=== PATIENT | male | born 1950 | race Caucasian/White ===

== ENCOUNTER 2022-02-16 09:45 | Outpatient (RCR) | payer MEDICARE, SELFPAY ==
--- OUTSIDE RECORDS SUMMARY | 2022-01-16 11:08 | XMS_ITS | Continuity of Care Document ---
:1950 Author Care Team Providers Name Role Phone MD Emy Ga Attending Physician SOHAIL Duarte Primary Care Physician Allergies, Adverse Reactions, Alerts Allergen Type Severity Reaction Last Updated Verified Status No Known Drug Allergy Unknown August Yes Active Allergy 2021 Social History Smoking Status Status Start Date End Date Date of Observat ion Never smoked tobacco April 6:25pm (finding) Additional Data Assigned Sex Male Problems Active Problems Medical Problem Onset Date Status Rectal cancer metastasized to lung 2018 Activ e Ulceration Active Postoperative visit Active Encounter for screening for Active COVID-19 Shingles Active Medications Medication Status Dose Units Route Directions Qty Days Start End Ins tructions Date Date Loperamide Active 2 MG PO As Needed Hcl (Imodium) 2 Mg CAP Lorazepam Active 0.5 MG PO Three Times April I f needed for nausea uncontrolled with prochlorperazine A Day as , (compazine) needed 2020 1:01pm Multivitamins Active 1 TAB PO Daily 100 (Multivitamin /Minerals) TAB Naproxen Active 1 TAB PO Bedtime Sodium-Diphen hydramin (Aleve Pm 220-25 Mg) 1 Tab TAB Ondansetron Active 4 MG PO Every April if prochlorperazine (compazine) is ineffective to control Hcl Hours as , nausea. Do not take within 24 hours of chemotherapy. needed 2020 12:59pm Potassium Active 20 MEQ PO Daily November On hold Chloride 2020 1:17pm Prochlorperaz Active 10 MG PO Every 4-April PRN ine Maleate Hours as , Nause a/vomitin needed 2019 4:03pm Cephalexin Disconti 500 MG PO Three Times 24 May Vilma watson nued A Day , er 2020, 6:33pm 2020 8:13am Cephalexin Disconti 500 MG PO Four Times 20 Octob e Hold (Keflex) 500 nued Daily er r , multiv itamin Mg CAP 2019 while taking 2019 3:56pm cephalexin 10:14am (keflex) Emollient Disconti 1 EA EX Twice A Day November t wice per day, alternating with triamcinolone and urea (Vanicream) nued , , cream to feet and hands. CRE 2020 2021 4:01pm 8:35am Lidocaine Disconti 1 MARYELLEN TOP Qid Prn as 50 October Apply a thin film topically on skin left of spine at the (Lidocaine 5% nued needed r , , lev el of shingles up to 4 times per day as needed for Oint) 5 % OIN 2020 2021 shingl es pain. Do not apply heat to skin. Avoid open areas. 9:39am 8:35am Lidocaine Hcl Disconti 4 % EX Twice A Day December obe apply a THIN layer/small amount to painful areas of feet (Lidocaine) 4 nued as needed , r tw ice per day, avoiding open areas. Alternate with urea % CRE 2020, cream & triamc inolone creams. Stop when pain resolves. 8:22am 2020 6:55am Lorazepam Disconti 0.5 MG PO Three Times 90 Octobe nued A Day as r needed 2019 10:37a m Naproxen Disconti 1 TAB PO Bedtime Novemb Sodium-Diphen nued er hydramin 4th, (Aleve Pm 2018 220-25 Mg) 1 9:52am Tab TAB Ondansetron Disconti 8 MG PO Every 8 30 Octobe Hcl (Zofran) nued Hours r 8 Mg TAB 2019 10:37a m Potassium Disconti 10 MEQ OR Daily October Bicarbonate-C nued y , , itric A 2019 2019 (Effer-K) 10 5:46pm 8:54am Meq TAB Potassium Disconti 10 MEQ OR Daily July Bicarbonate-C nued , ry itric A 2020 04, (Effer-K) 10 12:15pm 2019 Meq TAB 5:46pm Potassium Disconti 20 MEQ PO Daily 30 July Chloride nued , , 2020 2020 9:45am 1:17pm Potassium Disconti 10 MEQ PO Daily Julyuar Chloride nued 15, y (Klor-Con) 10 2019 15, Meq TABCR 8:56am 2019 12:15p m Potassium Disconti 10 MEQ PO Daily Julyuar Chloride nued , y 2019, 11:15am 2019 8:56am Prochlorperaz Disconti 10 MG PO Every 4-6 e PRN ine Maleate nued Hours as r Nause a/vomitin needed 2019 4:03pm Regorafenib Disconti 80 MG PO Daily Decemberobe DAYS 1-14, (Stivarga) 40 nued 18, r EVERY 21 DAYS Mg TAB 2021 06, 2:52pm 2020 12:59p m Regorafenib Disconti 120 MG PO Daily 63 November DAYS 1-21, (Stivarga) 40 nued 24, 18th, EVERY 28 DAYS Mg TAB 2020 2020 1:49pm 2:52pm Regorafenib Disconti 120 MG PO Daily 84 November DAYS 1-21, (Stivarga) 40 nued , 24, EVERY 28 DAYS Mg TAB 2020 2020 1:47pm 1:49pm Regorafenib Disconti 160 MG PO Daily 84 September DAYS 1-21, (Stivarga) 40 nued , 24, EVERY 28 DAYS Mg TAB 2020 2020 9:11am 1:47pm Triamcinolone Disconti 1 MARYELLEN TOP Twice A Day November il use twice per day. Alternate with urea cream and vanicream Acetonide nued , , or equival ent. stop use when pain resolves. (Triamcinolon 2020 2021 e Acetonide 4:01pm 8:35am (Cream)) 0.1 % CRE Urea (Urea 10 Disconti 10 % EX Twice A Day November emb use twice daily, alternating with vanicream or equivalent, Hydrating) 10 nued , er and tr iamcinolone. % CRE 2020, 4:01pm 2020 8:13am Valacyclovir Disconti 1 GRAMS PO Three Times 15 May No vemb Hcl (Valtrex) nued A Day , er 1 Gm TAB 2020, 6:33pm 2020 8:13am Medical Equipment Device Date Implanted Device Details PowerPort M.[employer]. Implantable May 08, 2021 REMIGIO: [id number] Issuing Agency: [facility] Device Id: [id number] Expiration Date: 09-26-29 Lot Number: [id number] Relevant Diagnostic Tests and/or Laboratory Data Laboratory Results Test Date/Time Result Interpretation Reference Result Comment Performing Range Site White Blood January 12, 6.46 5.00-10.00 [facility] Count 2021 [address] [facility] 7:45am [facility] [address] Red Blood January 12, 4.50 4.32-5.72 [facility] Count 2021 [address] [facility] 7:45am [place] [address] Hemoglobin January 12, 12.2 13.5-17.5 [facility] 2021 [address] [facility] 7:45am [place] [address] Hematocrit January 12, 38.8 38.8-50.0 [facility] 2021 [address] [facility] 7:45am [place] [address] Mean January 12, 86 81-95 [facility] Corpuscular 2021 1999 [facility] Volume 7:45am [place] [address] Mean January 12, 27 27-34 [facility] Corpuscular 2021 [address] [facility] Hemoglobin 7:45am [place] [address] Mean January 12, 31 32-36 [facility] Corpuscular 2021 [address] [facility] Hemoglobin 7:45am [place] [address] Concent Platelet Count January 12, 195 150-450 [facility] 2021 [address] [facility] 7:45am [place] [address] RDW January 12, 15.9 11.5-15.3 [facility] Coefficient of 2021 [address] [facility] Variation 7:45am [place] [address] Neutrophils January 12, 60.0 50.0-70.0 [facility] (%) (Auto) 2021 1999 [facility] 7:45am [place] [address] Lymphocytes January 12, 23.7 25.0-45.0 [facility] (%) (Auto) 2021 [address] [facility] 7:45am [place] [address] Monocytes (%) January 12, 13.0 0.00-11.0 [facility] (Auto) 2021 [address] [facility] 7:45am [place] [address] Eosinophils January 12, 2.2 0.0-7.0 [facility] (%) (Auto) 2021 [address] [facility] 7:45am [place] [address] Basophils (%) January 12, 0.9 0.0-3.0 [facility] (Auto) 2021 [address] [facility] 7:45am [place] [address] Immature January 12, 0.2 [facility] Granulocyte % 2021 [address] [facility] (Auto) 7:45am [place] [address] RDW April 17.1 11.5-15.3 [facility] Coefficient of 2020 [facility] Variation 8:29am [place] [address] Neutrophils # January 12, 3.88 1.70-7.00 [facility] (Auto) 2021 [address] [facility] 7:45am [place] [address] Lymphocytes # January 12, 1.53 0.90-2.90 [facility] (Auto) 2021 [address] [facility] 7:45am [place] [address] Monocytes # January 12, 0.84 0.30-0.90 [facility] (Auto) 2021 [address] [facility] 7:45am [place] [address] Eosinophils # January 12, 0.14 0.00-0.50 [facility] (Auto) 2021 [address] [facility] 7:45am [place] [address] Basophils # January 12, 0.06 0.00-0.20 [facility] (Auto) 2021 [address] [facility] 7:45am [place] [address] Immature January 12, 0.01 [facility] Granulocyte # 2021 [address] [facility] (Auto) 7:45am [facility] [address] Urine Color December 29, YELLOW YELLOW [facility] 2021 [address] [facility] 8:43am [place] [address] Urine December 29, CLEAR CLEAR [facility] Appearance 2021 [address] [facility] 8:43am [place] [address] Urine Glucose December 29, NEGATIVE NEGATIVE [facility] (UA) 2021 [address] [facility] 8:43am [place] [address] Urine December 29, NEGATIVE NEGATIVE [facility] Bilirubin 2021 [address] [facility] 8:43am [place] [address] Urine Ketones December 29, NEGATIVE NEGATIVE [facility] 2021 [address] [facility] 8:43am [facility] [address] Urine Specific December 29, 1.010 1.000-1.03 [facility] [place] 2021 0 [address] [facility] 8:43am [place] [address] Urine pH December 29, 7.0 5.0 - 8.5 [facility] 2021 [address] [facility] 8:43am [facility] [address] Urine Protein December 29, NEGATIVE NEGATIVE [facility] 2021 [address] [facility] 8:43am [facility] [address] Urine December 29, 1.0 0.2 [facility] Urobilinogen 2021 1999 [facility] 8:43am [facility] [address] Urine Nitrite December 29, NEGATIVE NEGATIVE [facility] 2021 [address] [facility] 8:43am [facility] [address] Urine Blood December 29, NEGATIVE NEGATIVE [facility] 2021 [address] [facility] 8:43am [place] [address] Urine December 29, NEGATIVE NEGATIVE [facility] Leukocyte 2021 [address] [facility] Esterase 8:43am [place] [address] Random Glucose January 12, 103 60-115 [facility] 2021 [address] [facility] 7:45am [facility] [address] Blood Urea January 12, 12 7-30 [facility] Nitrogen 2021 [address] [facility] 7:45am [facility] [address] Creatinine January 12, 0.9 0.5-1.5 [facility] 2021 [address] [facility] 7:45am [facility] [address] Estimated January 12, 88.197 [facility] Creatinine 2021 [address] [facility] Clearance 7:45am [facility] [address] Sodium Level January 12, 137 135-149 [facility] 2021 [address] [facility] 7:45am [facility] [address] Potassium January 12, 4.2 3.6-5.1 [facility] Level 2021 [address] [facility] 7:45am [facility] [address] Chloride Level January 12, 102 96-114 [facility] 2021 [address] [facility] 7:45am [facility] [address] Carbon Dioxide January 12, 26 20-32 [facility] Level 2021 [address] [facility] 7:45am [facility] [address] Calcium Level January 12, 9.2 8.4-10.6 [facility] 2021 [address] [facility] 7:45am [facility] [address] Total Protein January 12, 7.1 6.0-8.3 The use of [facility] Lab 2021 Eltrombopag, a [address] [facility] 7:45am bone marrow [facility] [place] [address] stimulant used to treat thrombocytopenia and aplastic anemia, interferes with this measurement of total protein. A 5% bias has been observed. Albumin January 12, 4.2 3.3-5.0 [facility] Lab 2021 [address] [facility] 7:45am [facility] [address] Total January 12, 0.8 0.1-1.5 [facility] Bilirubin 2021 [address] [facility] 7:45am [place] [address] Aspartate January 12 35 12-35 [facility] Lab Amino Transf 2021 1999 [facility] (AST/SGOT) 7:45am [facility] [address] Alanine January 12 20 4-50 [facility] Lab Aminotransfera 2021 [address] [facility] se (ALT/SGPT) 7:45am [facility] [address] Alkaline January 12, 141 40-150 [facility] Lab Phosphatase 2021 1999 [facility] 7:45am [facility] [address] Thyroid March 2.760 0.270-4.20 Patients taking [facility] Stimulating 2020 0 a high dose [address] [facility] Hormone (TSH) 2:20pm (>5mg/day) [place] [facility] [place] [address] Biotin supplement (vitamin B7) will demonstrate a >10% negative bias for TSH testing. Advance Directives Advance Directive Response Recorded Date/Time Has patient completed a No May 20 6:25pm Health Care Directive? Insurance Providers Guarantor Sid Azul Address [address] [place] [id number] Contact Info. Home Phone: Payer Policy Id Coverage Id Subscriber's Subscriber Id Effective E xpiration Name Date Date Medicare [id number] Sid Azul 30 Encounters Encounter Location(s) Arrival/Admit Date Discharge/Depart Date Provider(s) Registered [place] January 14, [address] [facility] 6:57am Plan of Treatment Future Tests Future scheduled test information is unavailable Pending Tests Pending diagnostic test information is unavailable Future Visits Future appointment information is unavailable Referrals to Other Providers Reason for Referral Start Provider Provider Contact Provider Address Referral Date Information Jaja Duarte Work Phone: [facility] [address] [phone] Future Procedures Future procedure information is unavailable Future Medications Future medication information is unavailable Patient Instructions See Additional Instructions Shingles (ED) Potassium Content of Foods List (GEN) Hypokalemia (GEN)
[2022-01-27 11:30] VITALS: BP 123/77; PULSE 73; RESP 16; TEMP 36.5; O2SAT 98
[2022-01-27 11:35] LABS: Basophils Absolute Auto 0.05 K/uL (0.00-0.30); Basophils Percent Auto 0.8 % (0.0-3.0); Eosinophils Absolute Auto 0.32 K/uL (0.00-0.50); Eosinophils Percent Auto 5.1 % (0.0-7.0); Hematocrit 37.8 % (37.0-53.0); Lymphocytes Absolute Auto 1.52 K/uL (0.90-2.90); Lymphocytes Percent Auto 24.2 % (20-44); Mean Corpuscular HGB Conc 32 gm/dL (32-36); Mean Corpuscular Hemoglobin 27 pg (26-34); Mean Corpuscular Volume 86 fL (80-100); Monocytes Percent Auto 13.7 % (0.0-11.0); Neutrophils Absolute Auto 3.53 K/uL (1.7-7.0); Neutrophils Percent Auto 56.2 % (42.0-72.0); Platelet Count* 159 K/uL (140-440); RDW Coefficient of Variation % 15.7 % (11.5-15.5); Red Blood Count 4.42 m/uL (4.30-5.90); White Blood Count* 6.28 K/uL (4.50-11.00)
[2022-01-27 11:41] LABS: Appearance Urine Clear (Clear); Bilirubin Urine Negative (Negative); Blood Urine Negative (Negative); Color Urine Yellow (Yellow); Glucose Urine Negative (Negative); Ketones Urine Negative (Negative); Leukocyte Esterase Urine Negative (Negative); Nitrite Urine Negative (Negative); Protein Urine Negative (Negative); pH Urine 6.5 (5.0-8.5)
[2022-01-27 11:47] LABS: Slide Review Reflex No
[2022-01-27 11:50] LABS: Albumin* 3.8 g/dL (3.3-5.0); Chloride* 105 mmol/L (96-114)
[2022-01-27 11:51] LABS: Potassium* 3.8 mmol/L (3.6-5.1); Sodium* 138 mmol/L (135-149)
[2022-01-27 11:53] LABS: Alkaline Phosphatase* 142 U/L (40-150); Aspartate Amino Transferase* 34 U/L (12-35); Bilirubin Total* 0.6 mg/dL (0.1-1.5); Blood Urea Nitrogen* 15 mg/dL (7-30); Carbon Dioxide* 30 mmol/L (20-32); Creatinine* 0.8 mg/dL (0.5-1.5); Est. Creatinine Clearance* 77.63; Estimated Glomerular Filt Rate 94.03; Total Protein* 6.6 g/dL (6.0-8.3)
[2022-01-27 11:54] LABS: Alanine Aminotransferase* 19 U/L (4-50); Calcium* 8.9 mg/dL (8.4-10.6); Glucose* 105 mg/dL (60-115)
[2022-01-27] MEDS: GRANISETRON 1 MG/ML inj IVP (12:52)
[2022-01-29 13:39] VITALS: BP 123/69; PULSE 76; RESP 16; TEMP 36.8; O2SAT 98
--- NOTE | 2022-02-06 17:38 | ONC.NURNOTE ---
Authorization: User: Hilary L Juan Date: 12/29/21 11:14 Type: Eligibility Determination Note... Request received for Granisetron J1626. Patient carries [employer] as primary insurance. Per CMS.gov no prior authorization is required for Granisetron. Services are based on medical necessity and follows Medicare guidelines. User: Frida Murguia Date: 04/25/21 13:57 Type: Eligibility Determination Note... Received request for prior auth for Avastin (J9035), Oxaliplatin (J9263), Leucovorin (J0640),Fluorouracil (J9190) and Aloxi (J2469). Pt carries Medicare. Per CMS.gov, LCD C03202, prior auth is not required. These are covered based on medical necessity.
[2022-02-09 08:55] VITALS: BP 142/76; PULSE 79; RESP 16; TEMP 36.7; O2SAT 98
[2022-02-09 09:26] LABS: Basophils Absolute Auto 0.05 K/uL (0.00-0.30); Eosinophils Percent Auto 7.2 % (0.0-7.0); Hematocrit 37.9 % (37.0-53.0); Hemoglobin* 11.9 gm/dL (13.5-17.5); Immature Granulocytes Abs Auto 0.01 K/uL (0.00-0.30); Lymphocytes Absolute Auto 1.28 K/uL (0.90-2.90); Lymphocytes Percent Auto 24.3 % (20-44); Mean Corpuscular HGB Conc 31 gm/dL (32-36); Mean Corpuscular Hemoglobin 27 pg (26-34); Mean Corpuscular Volume 85 fL (80-100); Monocytes Percent Auto 13.9 % (0.0-11.0); Neutrophils Absolute Auto 2.81 K/uL (1.7-7.0); Neutrophils Percent Auto 53.4 % (42.0-72.0); Platelet Count* 144 K/uL (140-440); Red Blood Count 4.45 m/uL (4.30-5.90); White Blood Count* 5.26 K/uL (4.50-11.00)
[2022-02-09 09:29] LABS: Slide Review Reflex No
[2022-02-09 09:39] LABS: Albumin* 3.8 g/dL (3.3-5.0); Chloride* 106 mmol/L (96-114); Potassium* 3.8 mmol/L (3.6-5.1); Sodium* 137 mmol/L (135-149)
[2022-02-09 09:41] LABS: Creatinine* 0.8 mg/dL (0.5-1.5); Est. Creatinine Clearance* 77.63; Estimated Glomerular Filt Rate 94 ml/min
[2022-02-09 09:42] LABS: Alanine Aminotransferase* 18 U/L (4-50); Alkaline Phosphatase* 146 U/L (40-150); Aspartate Amino Transferase* 32 U/L (12-35); Bilirubin Total* 0.6 mg/dL (0.1-1.5); Blood Urea Nitrogen* 17 mg/dL (7-30); Calcium* 8.8 mg/dL (8.4-10.6); Carbon Dioxide* 25 mmol/L (20-32); Glucose* 110 mg/dL (60-115); Total Protein* 6.6 g/dL (6.0-8.3)
[2022-02-09] MEDS: GRANISETRON 1 MG/ML inj IVP (11:22)
[2022-02-11 10:42] VITALS: BP 124/75; PULSE 77; RESP 16; TEMP 36.3; O2SAT 99
[2022-02-16] MEDS: HEPARIN 500 UNIT/5 ML SYRINGE IVF (10:12)
[2022-02-16] MEDS: SODIUM CHLORIDE 0.9 % (FLUSH) 10 ML SYRINGE IVF (10:13)
== END 2022-02-22 23:59 | disposition home or self-care (01) ==
LOC: CCIC 09:45
PROVIDERS: Clinical Nurse Specialist; PCP Physician Assistant; Visit Provider Internal Medicine Medical Oncology
DX: C20 Malignant neoplasm of rectum (principal); C78.00 Secondary malignant neoplasm of unspecified lung
CPT/HCPCS: 36415; 36591; 71260; 74177; 80053; 81003; 85025; 96365; 96366; 96375; 96376; 96413; 96416; 96417; 99211; J0640; J1626; J1642; J7050; J9035; J9190; Q9967

== ENCOUNTER 2022-06-01 14:32 | Outpatient (CLI) | payer MEDICARE, SELFPAY | END 2022-06-01 14:33 | disposition home or self-care (01) | LOC: RAD 14:32 | PROVIDERS: PCP Physician Assistant; Visit Provider Clinical Nurse Specialist | DX: Z01.818 Encounter for other preprocedural examination (principal); I51.7 Cardiomegaly; I38 Endocarditis, valve unspecified; I34.0 Nonrheumatic mitral (valve) insufficiency; C20 Malignant neoplasm of rectum; C78.00 Secondary malignant neoplasm of unspecified lung; Z51.81 Encounter for therapeutic drug level monitoring; Z79.899 Other long term (current) drug therapy | CPT/HCPCS: 93306 ==

== ENCOUNTER 2022-07-03 06:08 | Emergency (ER) | payer MEDICARE, SELFPAY ==
[2022-07-03 06:32] VITALS: BP 128/71; PULSE 86; RESP 16; TEMP 36.7; O2SAT 98
--- NOTE | 2022-07-03 06:48 | CRLHL7_ITS ---
For Patients: As a result of the Century Cures Act, medical imaging exams and procedure reports are released immediately into your electronic medical record. You may view this report before your referring provider. If you have questions, please contact your health care provider. INDICATION: Rectal bleeding. History of rectal adenocarcinoma metastatic to pelvis and to the lung. COMPARISON: Portions of a February 16, 2022 examination. TECHNIQUE: CT examination of the abdomen and pelvis was performed following the uneventful intravenous administration of 95 cc of Isovue 370. Thin section axial images were obtained from the lung bases through the pubic symphysis. Oral contrast was not administered. Please note that all CT scans at this facility use dose modulation, iterative reconstruction, and/or weight-based dosing when appropriate to reduce radiation dose to as low as reasonably achievable. FINDINGS: LUNG BASES: Multiple basilar lung masses increased in number and size when compared to the prior study consistent with progressive metastatic disease. There is minimal cavitation associated with a few of these lesions. Heart size normal and the lung bases. No pericardial fluid and no pleural fluid LIVER/BILIARY SYSTEM:The liver is normal in size and configuration. There is no focal mass and there is no intra- or extra hepatic biliary ductal dilatation.Steatosis. Normal appearing gallbladder ADRENALS: Normal KIDNEYS, URETERS and BLADDER:The kidneys appear normal. No visible mass, calculus or hydronephrosis. The ureters and bladder as visualized appear normal. SPLEEN:Normal appearance. PANCREAS: Appears normal. RETROPERITONEUM and MESENTERY: There is no mass, adenopathy or aortic aneurysm. GASTROINTESTINAL SYSTEM: There is a mass in the low left lateral rectum which likely represents the patient`s primary. This appears to be ulcerated. There is also possible extension into the posterolateral left aspect of prostate and the left seminal vesicle. These findings are progressive when compared to the prior examination. PELVIS: No visible adenopathy or free fluid. OSSEOUS STRUCTURES and ABDOMINAL WALL: No evidence of osseous metastatic disease.Large fat containing right inguinal hernia. OTHER: No free fluid or free air. IMPRESSION: 1. Multiple basilar lung masses increased in number and size consistent with progressive metastatic disease. 2. Mass in the low left lateral rectum which likely represents the patient`s primary neoplasm. This appears to be ulcerated. Probable transmural extension into the posterior lateral left aspect of the prostate superiorly and into the left seminal vesicle. Progressive findings compared to the previous examination. Please note that all CT scans at this facility use dose modulation, iterative reconstruction, and/or weight-based dosing when appropriate to reduce radiation dose to as low as reasonably achievable. Dictated by Edgard Rowell MD @ 07/03/2022 8:28:01 AM (Electronically Signed)
--- NOTE | 2022-07-03 07:02 | ED_ITS ---
HPI - General Adult General Chief complaint: Unspecified Complaint, Adult <Nati Rodriguez MD - Last Filed: 07/04/22 23:50> Stated complaint: Hemorhoids <Nati Rodriguez MD - Last Filed: 07/04/22 23:50> Time Seen by Provider: 07/03/22 06:37 <Nati Rodriguez MD - Last Filed: 07/04/22 23:50> Source: patient and family <Nati Rodriguez MD - Last Filed: 07/04/22 23:50> Mode of arrival: ambulatory <Nati Rodriguez MD - Last Filed: 07/04/22 23:50> Limitations: no limitations <Nati Rodriguez MD - Last Filed: 07/04/22 23:50> History of Present Illness HPI narrative: 72-year-old male presents the emergency department for evaluation of rectal bleeding. Patient reports that he has had intermittent episodes of this over the last several months. He was diagnosed with rectal cancer and January of 2019. For the past 2 weeks, the bleeding has become more regular. He awoke this morning with what he describes as ?a crime scene?. He had spontaneous rectal bleeding that had soaked the bed sheets. Being bright red blood and a few small clots. This has never happened before. Rudolph and put on depends. He has not noted subsequent leakage. He does not notice any chest pain, dizziness, lightheadedness or syncopal symptoms. He did let his oncology team know that he was having some bleeding at his last visit, he was told to continue monitoring as it since his blood counts look good and his vitals were stable. Is not take anticoagulants. He does use NSAIDs. No history of upper GI bleed, no GERD symptoms. No fevers or recent illness. No rectal injury or trauma. Last bowel movement was yesterday, it had some blood as they typically do lately but was otherwise unremarkable. No urinary changes. No recent radiation. No history of DVT or PE. Past medical history really only notable for the adenocarcinoma of the colon. He denies any other long-term health problems. He denies use of any prescription medications but states that he does tend to take Aleve at bedtime. I review his med list and really is only significant for as needed anti nausea medicines and chemotherapy agents. Socially denies any alcohol or illicit drug use, no pertinent travel. ROS is only notable for the rectal bleeding, otherwise feels well. Negative times 12 systems. <Nati Rodriguez MD - Last Filed: 07/04/22 23:50> Related Data Home medications: Home Medications Medication Instructions Recorded Confirmed loperamide 2 mg capsule 2 mg PO QID PRN 01/22/22 06/22/22 lorazepam 0.5 mg tablet 0.5 mg PO Q4H PRN 01/22/22 06/22/22 multivitamin 1 tab PO DAILY 01/22/22 05/11/22 naproxen 220 mg-diphenhydramine 25 1 tab PO HS 01/22/22 06/22/22 mg tablet ondansetron HCl 4 mg tablet 4 mg PO Q6H PRN 01/22/22 06/22/22 prochlorperazine maleate 10 mg 10 mg PO Q6-8H PRN 01/22/22 06/22/22 tablet Previous Rx's Medication Instructions Recorded tucatinib 150 mg tablet 300 mg PO Q12H #120 tabs 05/25/22 tucatinib 150 mg tablet 300 mg PO Q12H #120 tabs 06/01/22 <Nati Rodriguez MD - Last Filed: 07/04/22 23:50> Allergies/adverse reactions: Allergies Allergy/AdvReac Type Severity Reaction Status Date / Time No Known Drug Allergies Allergy Verified 07/03/22 08:07 <Nati Rodriguez MD - Last Filed: 07/04/22 23:50> [facility] Medical History: Medical History 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 Encounter for postoperative care Herpes zoster Rectal cancer Ulcerative lesion <Nati Rodriguez MD - Last Filed: 07/04/22 23:50> Social History: Social History Smoking Status: Unknown if ever smoked How often do you have a drink containing alcohol: never AUDIT-C Alcohol total score: 0 Non-prescribed substance use: denies use service: No <Nati Rodriguez MD - Last Filed: 07/04/22 23:50> Exam Const: Vital Signs, click to edit/add: Vital Signs - 24 hr 07/03/22 06:32 Temperature 98.0 F Pulse Rate [Left P ulse Oximeter] 86 Respiratory Rate 16 Blood Pressure [Ri ght Upper Arm] 128/71 Pulse Oximetry 98 Oxygen Delivery Me thod Room Air <Nati Rodriguez MD - Last Filed: 07/04/22 23:50> Vital Signs, click to edit/add: Vital Signs - 24 hr 07/03/22 06:32 Temperature 98.0 F Pulse Rate [Left P ulse Oximeter] 86 Respiratory Rate 16 Blood Pressure [Ri ght Upper Arm] 128/71 Pulse Oximetry 98 Oxygen Delivery Me thod Room Air <Vanessa Mesa MD - Last Filed: 07/03/22 09:23> Documenting provider has reviewed patient's vital signs: yes <Nati Rodriguez MD - Last Filed: 07/04/22 23:50> Common normals: no apparent distress <Nati Rodriguez MD - Last Filed: 07/04/22 23:50> General appearance: cooperative, comfortable and well kempt <Nati Rodriguez MD - Last Filed: 07/04/22 23:50> HENMT: Common normals: normocephalic <Nati Rodriguez MD - Last Filed: 07/04/22 23:50> Head and scalp: normocephalic <Nati Rodriguez MD - Last Filed: 07/04/22 23:50> Mouth: oral and palatal mucosa normal <Nati Rodriguez MD - Last Filed: 07/04/22 23:50> Other: Poor dentition. Acyanotic lips <Nati Rodriguez MD - Last Filed: 07/04/22 23:50> Eye: Common normals: conjunctivae normal <Nati Rodriguez MD - Last Filed: 07/04/22 23:50> Conjunctiva: conjunctiva(e) normal <Nati Rodriguez MD - Last Filed: 07/04/22 23:50> Other: No pallor or icterus <Nati Rodriguez MD - Last Filed: 07/04/22 23:50> Neck & C-Spine: Common normals: no lymphadenopathy <Nati Rodriguez MD - Last Filed: 07/04/22 23:50> Resp: Common normals: normal respiratory effort, no use of accessory muscles and clear to auscultation bilaterally <Nati Rodriguez MD - Last Filed: 07/04/22 23:50> Effort & inspection: able to speak in complete sentences <Nati Rodriguez MD - Last Filed: 07/04/22 23:50> Auscultation: clear to auscultation bilaterally <Nati Rodriguez MD - Last Filed: 07/04/22 23:50> Cardio: Common normals: regular rate, regular rhythm, S1 normal heart sound, S2 normal heart sound, no murmurs and peripheral pulses 2+ throughout <Nati Rodriguez MD - Last Filed: 07/04/22 23:50> Rate: regular rate <Nati Rodriguez MD - Last Filed: 07/04/22 23:50> Rhythm: regular rhythm <Nati Rodriguez MD - Last Filed: 07/04/22 23:50> Heart sounds: S1 normal and S2 normal <Nati Rodriguez MD - Last Filed: 07/04/22 23:50> Peripheral pulses: pulses 2+ throughout <Nati Rodriguez MD - Last Filed: 07/04/22 23:50> GI: Common normals: Normal to inspection, nondistended, normoactive bowel sounds present, soft to palpation, non-tender and no hepatosplenomegaly <Nati Rodriguez MD - Last Filed: 07/04/22 23:50> Palpation: soft and no hepatosplenomegaly <Nati Rodriguez MD - Last Filed: 07/04/22 23:50> : Other: Perirectal exam is essentially normal. There is a scant amount of bleeding clean to the skin only, the depends that he put on over an hour ago is dry. There appears to be normal rectal tone and though I do not perform much of an internal exam, I do not see any obvious external mass. I need to research where his tumor is to not disrupt any known disease if his lesion is low. At this point everything appears to have clotted over. <Nati Rodriguez MD - Last Filed: 07/04/22 23:50> Extremity: Common normals: normal to inspection and normal capillary refill <Nati Rodriguez MD - Last Filed: 07/04/22 23:50> Neuro: Speech: speech normal <Nati Rodriguez MD - Last Filed: 07/04/22 23:50> Motor exam: no tremor noted and no movement abnormalities noted <Nati Rodriguez MD - Last Filed: 07/04/22 23:50> Psych: Appearance: well kempt <Nati Rodriguez MD - Last Filed: 07/04/22 23:50> Attitude: engaged <Nati Rodriguez MD - Last Filed: 07/04/22 23:50> Mood and affect: euthymic mood <Nati Rodriguez MD - Last Filed: 07/04/22 23:50> Insight: insight good <Nati Rodriguez MD - Last Filed: 07/04/22 23:50> Judgement: judgment good <Nati Rodriguez MD - Last Filed: 07/04/22 23:50> Skin: Common normals: no rashes or lesions noted <Nati Rodriguez MD - Last Filed: 07/04/22 23:50> General skin exam: no rashes or lesions noted <Nati Rodriguez MD - Last Filed: 07/04/22 23:50> Course Course Hospital Course: Patient proceeded with an abdominal CT scan that showed a rectal mass that is not ulcerated. I did speak to Dr. Ruggiero, oncologist, who recommended that since the patient is no longer bleeding, is hemodynamically, and hemoglobin has not had a significant change, then he can be discharged home with oncology follow-up. Oncology Clinic will reach out to the patient today to set this up. <Nati Rodriguez MD - Last Filed: 07/04/22 23:50> Vital Signs Vital signs: Initial Vital Signs Temperature 98.0 F 07/03/22 06:32 Temperature Source Temporal Artery Scan 07/03/22 06:32 Pulse Rate 86 07/03/22 06:32 Pulse Rhythm 07/03/22 06:32 Respiratory Rate 16 07/03/22 06:32 Blood Pressure 128/71 07/03/22 06:32 Blood Pressure Mean 90 07/03/22 06:32 Blood Pressure Position Semi-Fowlers 07/03/22 06:32 Pulse Oximetry 98 07/03/22 06:32 Oxygen Delivery Method 07/03/22 06:32 Vital Signs Temperature 98.0 F 07/03/22 06:32 Pulse Rate 86 07/03/22 06:32 Respiratory Rate 16 07/03/22 06:32 Blood Pressure 128/71 07/03/22 06:32 Pulse Oximetry 98 07/03/22 06:32 Oxygen Delivery Method 07/03/22 06:32 Temperature 98.0 F 07/03/22 06:32 Pulse Rate 81 07/03/22 08:15 Respiratory Rate 18 07/03/22 08:15 Blood Pressure 143/83 H 07/03/22 08:15 Pulse Oximetry 98 07/03/22 08:15 Oxygen Delivery Method 07/03/22 08:15 <Nati Rodriguez MD - Last Filed: 07/04/22 23:50> Initial Vital Signs Temperature 98.0 F 07/03/22 06:32 Temperature Source Temporal Artery Scan 07/03/22 06:32 Pulse Rate 86 07/03/22 06:32 Pulse Rhythm 07/03/22 06:32 Respiratory Rate 16 07/03/22 06:32 Blood Pressure 128/71 07/03/22 06:32 Blood Pressure Mean 90 07/03/22 06:32 Blood Pressure Position Semi-Fowlers 07/03/22 06:32 Pulse Oximetry 98 07/03/22 06:32 Oxygen Delivery Method 07/03/22 06:32 Vital Signs Temperature 98.0 F 07/03/22 06:32 Pulse Rate 86 07/03/22 06:32 Respiratory Rate 16 07/03/22 06:32 Blood Pressure 128/71 07/03/22 06:32 Pulse Oximetry 98 07/03/22 06:32 Oxygen Delivery Method 07/03/22 06:32 Temperature 98.0 F 07/03/22 06:32 Pulse Rate 81 07/03/22 08:15 Respiratory Rate 18 07/03/22 08:15 Blood Pressure 143/83 H 07/03/22 08:15 Pulse Oximetry 98 07/03/22 08:15 Oxygen Delivery Method 07/03/22 08:15 <Vanessa Mesa MD - Last Filed: 07/03/22 09:23> Medical Decision Making MDM Narrative Medical decision making narrative: Differential diagnosis including upper GI bleed, lower GI bleed, diverticular bleed, cancer related bleeding. Basic labs, check in on anemia, INR. I do recommend CT of the abdomen and pelvis since it looks as though he has not had 1 recently. Will bolus normal saline x1. Plan of care discussed. <Nati Rodriguez MD - Last Filed: 07/04/22 23:50> Differential diagnosis including upper GI bleed, lower GI bleed, diverticular bleed, cancer related bleeding. Basic labs, check in on anemia, INR. I do recommend CT of the abdomen and pelvis since it looks as though he has not had 1 recently. Will bolus normal saline x1. Plan of care discussed. 72-year-old male with primary rectal cancer and lung metastasis, presenting with rectal bleeding secondary to ulcerating rectal mass. Patient will be discharged home at this time and he will follow up with Oncology in the next couple of days. Will return to the ER if significant bleeding resumes. <Vanessa Mesa MD - Last Filed: 07/03/22 09:23> Medical Records Medical records reviewed: Yes I reviewed the patient's medical records <Vanessa Mesa MD - Last Filed: 07/03/22 09:23> Lab Data Lab results reviewed: Yes I reviewed the patient's lab results <Vanessa Mesa MD - Last Filed: 07/03/22 09:23> Labs: Lab Results 07/03/22 07/03/22 07/03/22 Range/Units 07:08 07:08 07:08 WBC 7.75 (4.50-11.00) K/uL RBC 4.57 (4.30-5.90) m/uL Hgb 11.6 L (13.5-17.5) gm/dL Hct 36.0 L (37.0-53.0) % MCV 79 L (80-100) fL MCH 25 L (26-34) pg MCHC 32 (32-36) gm/dL RDW Coeff of Keyur 14.4 (11.5-15.5) % Plt Count 223 (140-440) K/uL Neut % (Auto) 71.0 (42.0-72.0) % Lymph % (Auto) 12.9 L (20-44) % [place] % (Auto) 10.1 (0.0-11.0) % Eos % (Auto) 4.9 (0.0-7.0) % Baso % (Auto) 0.8 (0.0-3.0) % Neut # (Auto) 5.51 (1.7-7.0) K/uL Lymph # (Auto) 1.00 (0.90-2.90) K/uL [place] # (Auto) 0.80 (0.00-0.90) K/UL Eos # (Auto) 0.38 (0.00-0.50) K/uL Baso # (Auto) 0.06 (0.00-0.30) K/uL Abs Immat Gran (auto) 0.02 (0.00-0.30) K/uL Imm/Tot Granulo (auto) 0.3 % INR 1.06 (0.91-1.10) Sodium 139 (135-149) mmol/L Potassium 3.5 L (3.6-5.1) mmol/L Chloride 107 (96-114) mmol/L Carbon Dioxide 26 (20-32) mmol/L BUN 13 (7-30) mg/dL Creatinine 0.8 (0.5-1.5) mg/dL Estimated GFR 94 ml/min Glucose 98 (60-115) mg/dL Calcium 9.1 (8.4-10.6) mg/dL Total Bilirubin 0.7 (0.1-1.5) mg/dL AST 34 (12-35) U/L ALT 21 (4-50) U/L Alkaline Phosphatase 136 (40-150) U/L C-Reactive Protein 1.6 H (0.5-1.0) mg/dL Total Protein 6.9 (6.0-8.3) g/dL Albumin 3.8 (3.3-5.0) g/dL <Nati Rodriguez MD - Last Filed: 07/04/22 23:50> Lab Results 07/03/22 07/03/22 07/03/22 Range/Units 07:08 07:08 07:08 WBC 7.75 (4.50-11.00) K/uL RBC 4.57 (4.30-5.90) m/uL Hgb 11.6 L (13.5-17.5) gm/dL Hct 36.0 L (37.0-53.0) % MCV 79 L (80-100) fL MCH 25 L (26-34) pg MCHC 32 (32-36) gm/dL RDW Coeff of Keyur 14.4 (11.5-15.5) % Plt Count 223 (140-440) K/uL Neut % (Auto) 71.0 (42.0-72.0) % Lymph % (Auto) 12.9 L (20-44) % [place] % (Auto) 10.1 (0.0-11.0) % Eos % (Auto) 4.9 (0.0-7.0) % Baso % (Auto) 0.8 (0.0-3.0) % Neut # (Auto) 5.51 (1.7-7.0) K/uL Lymph # (Auto) 1.00 (0.90-2.90) K/uL [place] # (Auto) 0.80 (0.00-0.90) K/UL Eos # (Auto) 0.38 (0.00-0.50) K/uL Baso # (Auto) 0.06 (0.00-0.30) K/uL Abs Immat Gran (auto) 0.02 (0.00-0.30) K/uL Imm/Tot Granulo (auto) 0.3 % INR 1.06 (0.91-1.10) Sodium 139 (135-149) mmol/L Potassium 3.5 L (3.6-5.1) mmol/L Chloride 107 (96-114) mmol/L Carbon Dioxide 26 (20-32) mmol/L BUN 13 (7-30) mg/dL Creatinine 0.8 (0.5-1.5) mg/dL Estimated GFR 94 ml/min Glucose 98 (60-115) mg/dL Calcium 9.1 (8.4-10.6) mg/dL Total Bilirubin 0.7 (0.1-1.5) mg/dL AST 34 (12-35) U/L ALT 21 (4-50) U/L Alkaline Phosphatase 136 (40-150) U/L C-Reactive Protein 1.6 H (0.5-1.0) mg/dL Total Protein 6.9 (6.0-8.3) g/dL Albumin 3.8 (3.3-5.0) g/dL <Vanessa Mesa MD - Last Filed: 07/03/22 09:23> Imaging Data CT scan - abdomen: Attestation: I have reviewed the pertinent imaging results. <Vanessa Mesa MD - Last Filed: 07/03/22 09:23> Radiologist's impression: CT examination of the abdomen and pelvis was performed following the uneventful intravenous administration of 95 cc of Isovue 370. Thin section axial images were obtained from the lung bases through the pubic symphysis. Oral contrast was not administered. Please note that all CT scans at this facility use dose modulation, iterative reconstruction, and/or weight-based dosing when appropriate to reduce radiation dose to as low as reasonably achievable. FINDINGS: LUNG BASES: Multiple basilar lung masses increased in number and size when compared to the prior study consistent with progressive metastatic disease. There is minimal cavitation associated with a few of these lesions. Heart size normal and the lung bases. No pericardial fluid and no pleural fluid LIVER/BILIARY SYSTEM:The liver is normal in size and configuration. There is no focal mass and there is no intra- or extra hepatic biliary ductal dilatation.Steatosis. Normal appearing gallbladder ADRENALS: Normal KIDNEYS, URETERS and BLADDER:The kidneys appear normal. No visible mass, calculus or hydronephrosis. The ureters and bladder as visualized appear normal. SPLEEN:Normal appearance. PANCREAS: Appears normal. RETROPERITONEUM and MESENTERY: There is no mass, adenopathy or aortic aneurysm. GASTROINTESTINAL SYSTEM: There is a mass in the low left lateral rectum which likely represents the patient`s primary. This appears to be ulcerated. There is also possible extension into the posterolateral left aspect of prostate and the left seminal vesicle. These findings are progressive when compared to the prior examination. PELVIS: No visible adenopathy or free fluid. OSSEOUS STRUCTURES and ABDOMINAL WALL: No evidence of osseous metastatic disease.Large fat containing right inguinal hernia. OTHER: No free fluid or free air. IMPRESSION: 1. Multiple basilar lung masses increased in number and size consistent with progressive metastatic disease. 2. Mass in the low left lateral rectum which likely represents the patient`s primary neoplasm. This appears to be ulcerated. Probable transmural extension into the posterior lateral left aspect of the prostate superiorly and into the left seminal vesicle. Progressive findings compared to the previous examination. <Vanessa Mesa MD - Last Filed: 07/03/22 09:23> Discharge Plan Discharge Clinical Impression: Rectal cancer <Nati Rodriguez MD - Last Filed: 07/04/22 23:50> Patient Disposition: Home, Self-Care <Nati Rodriguez MD - Last Filed: 07/04/22 23:50> Condition: Stable <Nati Rodriguez MD - Last Filed: 07/04/22 23:50> Instructions: Colorectal Cancer (DC) <Nati Rodriguez MD - Last Filed: 07/04/22 23:50> Additional Instructions: The oncology clinic will reach out to you today to set up a follow-up appointment either next Wednesday or Wednesday. You may experience some bleeding over the weekend. If it stops you can continue to manage yourself at home. However if it continues to bleed or you feel dizzy, chest pain or short of breath with this bleeding if she return to the ER. <Nati Rodriguez MD - Last Filed: 07/04/22 23:50> Prescriptions: No Action lorazepam 0.5 mg tablet 0.5 mg PO Q4H PRN Label Comments: TAKE ONE TABLET BY MOUTH THREE TIMES DAILY NEEDED for nausea uncontrolled with compazine ondansetron HCl 4 mg tablet 4 mg PO Q6H PRN Label Comments: take 1 tablet by mouth every 6 hours as needed if compazine is ineffective to control nausea. Do not take within 24 hours of chemotherapy. loperamide 2 mg capsule 2 mg PO QID PRN multivitamin Tablet 1 tab PO DAILY naproxen-diphenhydramine 220-25 mg tablet 1 tab PO HS prochlorperazine maleate 10 mg tablet 10 mg PO Q6-8H PRN tucatinib 150 mg tablet 300 mg PO Q12H Qty: 120 2RF tucatinib 150 mg tablet 300 mg PO Q12H Qty: 120 0RF <Nati Rodriguez MD - Last Filed: 07/04/22 23:50> Follow Up/Referrals: Jaja Duarte, PA [Primary Care Provider] - <Nati Rodriguez MD - Last Filed: 07/04/22 23:50> Stand Alone Forms: MyHealth Info Instructions <Nati Rodriguez MD - Last Filed: 07/04/22 23:50>
[2022-07-03] MEDS: 0.9 % SODIUM CHLORIDE 1000 ml 1,000 ML IV (07:07)
[2022-07-03 07:38] LABS: Basophils Absolute Auto 0.06 K/uL (0.00-0.30); Basophils Percent Auto 0.8 % (0.0-3.0); Eosinophils Absolute Auto 0.38 K/uL (0.00-0.50); Eosinophils Percent Auto 4.9 % (0.0-7.0); Hemoglobin* 11.6 gm/dL (13.5-17.5); Immature Granulocytes Abs Auto 0.02 K/uL (0.00-0.30); Immature Granulocytes Pct Auto 0.3 %; Lymphocytes Percent Auto 12.9 % (20-44); Mean Corpuscular HGB Conc 32 gm/dL (32-36); Mean Corpuscular Hemoglobin 25 pg (26-34); Mean Corpuscular Volume 79 fL (80-100); Monocytes Percent Auto 10.1 % (0.0-11.0); Neutrophils Absolute Auto 5.51 K/uL (1.7-7.0); Platelet Count* 223 K/uL (140-440); RDW Coefficient of Variation % 14.4 % (11.5-15.5); Red Blood Count 4.57 m/uL (4.30-5.90); White Blood Count* 7.75 K/uL (4.50-11.00)
[2022-07-03 07:41] LABS: Albumin* 3.8 g/dL (3.3-5.0); Chloride* 107 mmol/L (96-114); Sodium* 139 mmol/L (135-149)
[2022-07-03 07:42] LABS: Potassium* 3.5 mmol/L (3.6-5.1)
[2022-07-03 07:44] LABS: Alanine Aminotransferase* 21 U/L (4-50); Alkaline Phosphatase* 136 U/L (40-150); Aspartate Amino Transferase* 34 U/L (12-35); Bilirubin Total* 0.7 mg/dL (0.1-1.5); Blood Urea Nitrogen* 13 mg/dL (7-30); Carbon Dioxide* 26 mmol/L (20-32); Creatinine* 0.8 mg/dL (0.5-1.5); Estimated Glomerular Filt Rate 94 ml/min; Glucose* 98 mg/dL (60-115); Slide Review Reflex No; Total Protein* 6.9 g/dL (6.0-8.3)
[2022-07-03 07:45] LABS: Calcium* 9.1 mg/dL (8.4-10.6)
[2022-07-03 07:47] LABS: C Reactive Protein* 1.6 mg/dL (0.5-1.0)
[2022-07-03 08:02] LABS: INR 1.06 (0.91-1.10); Prothrombin Time 14.4 Seconds
[2022-07-03] MEDS: OMEPRAZOLE 20 MG CAPSULE DR 40 MG PO (08:14)
[2022-07-03 08:15] VITALS: BP 143/83; PULSE 81; RESP 18; O2SAT 98
== END 2022-07-03 09:46 | disposition home or self-care (01) ==
PROVIDERS: Family Medicine; Emergency Provider Family Medicine; PCP Physician Assistant
DX: C20 Malignant neoplasm of rectum (principal)
CPT/HCPCS: 36415; 74177; 80053; 85025; 85610; 86140; 99284; A9270; J7030; Q9967

== ENCOUNTER 2022-08-03 08:45 | Outpatient (RCR) | payer MEDICARE, SELFPAY ==
[2022-02-23 09:06] LABS: Basophils Absolute Auto 0.08 K/uL (0.00-0.30); Basophils Percent Auto 1.3 % (0.0-3.0); Eosinophils Percent Auto 8.9 % (0.0-7.0); Hematocrit 40.4 % (37.0-53.0); Hemoglobin* 12.8 gm/dL (13.5-17.5); Lymphocytes Absolute Auto 1.39 K/uL (0.90-2.90); Lymphocytes Percent Auto 22.5 % (20-44); Mean Corpuscular HGB Conc 32 gm/dL (32-36); Mean Corpuscular Hemoglobin 27 pg (26-34); Mean Corpuscular Volume 84 fL (80-100); Monocytes Percent Auto 12.8 % (0.0-11.0); Neutrophils Absolute Auto 3.36 K/uL (1.7-7.0); Neutrophils Percent Auto 54.5 % (42.0-72.0); Platelet Count* 155 K/uL (140-440); RDW Coefficient of Variation % 16.1 % (11.5-15.5); White Blood Count* 6.17 K/uL (4.50-11.00)
[2022-02-23 09:11] LABS: Slide Review Reflex No
[2022-02-23 09:20] LABS: Appearance Urine Clear (Clear); Bilirubin Urine Negative (Negative); Blood Urine Negative (Negative); Chloride* 105 mmol/L (96-114); Color Urine Yellow (Yellow); Glucose Urine Negative (Negative); Ketones Urine Negative (Negative); Leukocyte Esterase Urine Negative (Negative); Nitrite Urine Negative (Negative); Potassium* 4.3 mmol/L (3.6-5.1); Protein Urine Negative (Negative); Sodium* 137 mmol/L (135-149); Specific Gravity Urine 1.015 (1.000-1.030); Urobilinogen Urine 0.2 (0.2-1.0)
[2022-02-23 09:22] LABS: Bilirubin Total* 0.7 mg/dL (0.1-1.5); Creatinine* 0.9 mg/dL (0.5-1.5); Estimated Glomerular Filt Rate 91 ml/min
[2022-02-23 09:23] LABS: Alanine Aminotransferase* 18 U/L (4-50); Alkaline Phosphatase* 136 U/L (40-150); Aspartate Amino Transferase* 33 U/L (12-35); Blood Urea Nitrogen* 10 mg/dL (7-30); Calcium* 9.2 mg/dL (8.4-10.6); Carbon Dioxide* 29 mmol/L (20-32); Glucose* 108 mg/dL (60-115); Total Protein* 7.3 g/dL (6.0-8.3)
[2022-02-23] MEDS: GRANISETRON 1 MG/ML inj IVP (11:34)
[2022-02-23] MEDS: FLUOROURACIL IV (13:14)
[2022-02-23] MEDS: CADD MED CASSETTE RESERVOIR IV (13:14)
[2022-02-25 11:30] VITALS: BP 146/74; PULSE 75; RESP 16; TEMP 36.8; O2SAT 93
[2022-03-09 08:53] VITALS: BP 121/77; PULSE 76; RESP 16; TEMP 36.6; O2SAT 98
[2022-03-09 09:20] LABS: Basophils Absolute Auto 0.07 K/uL (0.00-0.30); Basophils Percent Auto 1.1 % (0.0-3.0); Eosinophils Percent Auto 10.5 % (0.0-7.0); Hematocrit 39.1 % (37.0-53.0); Hemoglobin* 12.5 gm/dL (13.5-17.5); Immature Granulocytes Abs Auto 0.01 K/uL (0.00-0.30); Lymphocytes Percent Auto 17.5 % (20-44); Mean Corpuscular HGB Conc 32 gm/dL (32-36); Mean Corpuscular Hemoglobin 27 pg (26-34); Mean Corpuscular Volume 83 fL (80-100); Monocytes Percent Auto 12.6 % (0.0-11.0); Neutrophils Percent Auto 58.1 % (42.0-72.0); Platelet Count* 170 K/uL (140-440); RDW Coefficient of Variation % 16.3 % (11.5-15.5); Red Blood Count 4.69 m/uL (4.30-5.90); White Blood Count* 6.36 K/uL (4.50-11.00)
[2022-03-09 09:23] LABS: Slide Review Reflex No
[2022-03-09 09:26] LABS: Albumin* 3.9 g/dL (3.3-5.0); Chloride* 105 mmol/L (96-114); Sodium* 138 mmol/L (135-149)
[2022-03-09 09:27] LABS: Potassium* 3.9 mmol/L (3.6-5.1)
[2022-03-09 09:29] LABS: Alanine Aminotransferase* 20 U/L (4-50); Alkaline Phosphatase* 134 U/L (40-150); Aspartate Amino Transferase* 35 U/L (12-35); Bilirubin Total* 0.7 mg/dL (0.1-1.5); Blood Urea Nitrogen* 12 mg/dL (7-30); Carbon Dioxide* 26 mmol/L (20-32); Creatinine* 0.8 mg/dL (0.5-1.5); Estimated Glomerular Filt Rate 94 ml/min; Glucose* 111 mg/dL (60-115)
[2022-03-09] MEDS: SODIUM CHLORIDE 0.9 % (FLUSH) 10 ML SYRINGE IVF (10:43)
[2022-03-09] MEDS: 0.9 % SODIUM CHLORIDE 250 ml IV (10:43)
[2022-03-09] MEDS: GRANISETRON 1 MG/ML inj IVP (11:15)
[2022-03-09] MEDS: FLUOROURACIL IV (12:47)
[2022-03-09] MEDS: CADD MED CASSETTE RESERVOIR IV (12:47)
--- NOTE | 2022-03-10 14:00 | ONC.NURNOTE ---
Dionicio new RX submitted to [facility] yesterday
[2022-03-11] MEDS: HEPARIN 500 UNIT/5 ML SYRINGE IVF (11:31)
[2022-03-11] MEDS: SODIUM CHLORIDE 0.9 % (FLUSH) 10 ML SYRINGE IVF (11:32)
--- NOTE | 2022-03-12 12:45 | ONC.NURNOTE ---
PA completed via covermymeds on 03/11/22 documentation from [facility] that PA for Lonsuiker was denied -patient has not had eributux or vectibex info will be forwarded to Dr Ga call to Emily with updates done
--- NOTE | 2022-03-19 09:58 | ONC.NURNOTE ---
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
--- NOTE | 2022-03-23 09:51 | ONC.NURNOTE ---
Addendum entered by Juhi Javier RN 03/24/22 11:05: Enrollement form signed by Kyara Gann APRN and faxed back to [facility] patient support- Connie @ [phone] Original Note: [facility] is working on enrollment in Patient Assist program with [facility] Oncology Dr Ga's signature is needed and he is currently out of the [facility] office until 04/06 [facility] will see if they can get the signatures from Harmeet when he is in [place] Emily called with this follow up
--- NOTE | 2022-04-03 12:02 | ONC.NURNOTE ---
New [facility] start update Enrollment still pending at [facility] Oncology benefit investigation completed commercial insurance underwriter requested expedited review Emily given phone # to call today for next step of patient application review [phone]
[2022-04-06 13:40] LABS: Appearance Urine Clear (Clear); Bilirubin Urine Negative (Negative); Blood Urine Negative (Negative); Color Urine Yellow (Yellow); Glucose Urine Negative (Negative); Ketones Urine Negative (Negative); Leukocyte Esterase Urine Negative (Negative); Nitrite Urine Negative (Negative); Protein Urine Negative (Negative); Specific Gravity Urine 1.015 (1.000-1.030); pH Urine 7.5 (5.0-8.5)
[2022-04-06 13:52] LABS: Basophils Absolute Auto 0.05 K/uL (0.00-0.30); Basophils Percent Auto 0.7 % (0.0-3.0); Eosinophils Absolute Auto 0.32 K/uL (0.00-0.50); Eosinophils Percent Auto 4.8 % (0.0-7.0); Hematocrit 41.3 % (37.0-53.0); Hemoglobin* 13.3 gm/dL (13.5-17.5); Immature Granulocytes Abs Auto 0.02 K/uL (0.00-0.30); Lymphocytes Absolute Auto 1.42 K/uL (0.90-2.90); Lymphocytes Percent Auto 21.2 % (20-44); Mean Corpuscular HGB Conc 32 gm/dL (32-36); Mean Corpuscular Hemoglobin 27 pg (26-34); Mean Corpuscular Volume 83 fL (80-100); Monocytes Percent Auto 9.8 % (0.0-11.0); Neutrophils Absolute Auto 4.24 K/uL (1.7-7.0); Neutrophils Percent Auto 63.2 % (42.0-72.0); Platelet Count* 176 K/uL (140-440); RDW Coefficient of Variation % 16.4 % (11.5-15.5); Slide Review Reflex No; White Blood Count* 6.71 K/uL (4.50-11.00)
[2022-04-06 14:18] VITALS: BP 109/77; PULSE 91; RESP 16; TEMP 37.1; O2SAT 98
[2022-04-06 14:24] LABS: Albumin* 4.3 g/dL (3.3-5.0); Chloride* 104 mmol/L (96-114); Potassium* 4.2 mmol/L (3.6-5.1); Sodium* 137 mmol/L (135-149)
[2022-04-06 14:26] LABS: Bilirubin Total* 0.8 mg/dL (0.1-1.5); Creatinine* 0.8 mg/dL (0.5-1.5); Est. Creatinine Clearance* 75.46; Estimated Glomerular Filt Rate 94 ml/min
[2022-04-06 14:27] LABS: Alanine Aminotransferase* 19 U/L (4-50); Alkaline Phosphatase* 123 U/L (40-150); Aspartate Amino Transferase* 34 U/L (12-35); Blood Urea Nitrogen* 11 mg/dL (7-30); Calcium* 9.5 mg/dL (8.4-10.6); Carbon Dioxide* 26 mmol/L (20-32); Glucose* 141 mg/dL (60-115); Total Protein* 7.6 g/dL (6.0-8.3)
[2022-04-06] MEDS: 0.9 % SODIUM CHLORIDE 250 ml IV (15:43)
[2022-04-06] MEDS: HEPARIN 500 UNIT/5 ML SYRINGE IVF (15:43)
[2022-04-06] MEDS: SODIUM CHLORIDE 0.9 % (FLUSH) 10 ML SYRINGE IVF (15:43)
--- NOTE | 2022-04-07 13:15 | ONC.NURNOTE ---
Addendum entered by Yesenia Ortiz, RN 04/09/22 14:53: Medicinal Plant Picker contacted significant other to find out the status of enrollment. She notes that over the last two days she has been on hold with them for hours and has not yet talked with an acutal person. She would like to keep the appointment with Dr. Ga on Wednesday to determine other options, as she was told somewhere in this process that IF they get enrolled, it may be about 45 days before this is complete. Original Note: Preliminary application started with Medicare Extra Help- and it appears that Sid would qualify phone # [phone] call for enrollment [phone] Yesterday Emily was given CAC # to check in about [place] application and Senior Linkage Line to get further info about Medicare Extra Help Medicinal Plant Picker alos phoned [facility] Oncology and requested a compassionate use exception for Sid to receive Lonsurf until he can be enrolled in Medicare Extra Help
--- NOTE | 2022-04-14 13:33 | URNOTE ---
Received request for prior auth for Avastin (J9035). Pt has Medicare. Prior authorization is not required as services are based on medical necessity and follow medicare guidelines.
--- NOTE | 2022-04-14 13:44 | URNOTE ---
Recieved request for prior auth for Avastin (J9035). Pt has medicare. Prior auth is not required as services are based on medical necessity and follow medicare guidelines.
--- NOTE | 2022-04-23 13:28 | ONC.NURNOTE ---
Re: Medicare Extra Help Emily states that she called and was told that she should call back Apr 25 for enrollment will reconnect again next week,after Emily calls on 04/25/22
--- NOTE | 2022-04-30 14:47 | ONC.NURNOTE ---
Coordination of care designer/writer spoke with Emily post biopsy follow up appt made with Dr Harmeet Diaz has been able to talk to someone from and will be receiving the packet for enrollment in Medicare Extra Help She was told that Sid will still have a $70 monthly copay for this medication- which is not affordable for Sid Next Steps: Emily will fill out application for Medicare Extra Help Semi Conductor Assembler will contact Pato about enrollment now that it is understood there is still a large copay for this medication even with Medicare Extra Help
--- NOTE | 2022-04-30 16:32 | PC.SOCIAL ---
Social work : Received request from [facility] to contact pt's significant other, Víctor, regarding options for financial assistance. Called Víctor and shared information on Medical Assistance application and how this could assist with medication financial concerns. She is interested in following through with an application. Answered questions and provided her with contact at the [facility] for the [facility] navigator program for assistance with the application. Also put in a Senior Linkage Line referral, [id number], requesting they reach out to Víctor for assessment of Sid's eligibility for county programs and Medical Assistance. Víctor was appriative of information provided.
--- NOTE | 2022-05-13 12:38 | ONC.NURNOTE ---
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 Original Note: Update on Lonsurf coverage: Emily brought in a Medicare Part D RX card- Senior Stock Plan Administrator has contacted [facility] they have the Medicare Part D insurance card- [facility] Requested that they re run the RX and check for any available copay programs awaiting to hear back Speaking with Emily- she states that they reenrolled in Medicare with full coverage including dental care and prescriptions with a max out of pocket of $10 starting 07/26/22 Will bring in the new card when received in the mail
--- NOTE | 2022-05-21 15:03 | URNOTE ---
Received request for prior authorization for Herceptin (Trastuzumab) (J9355). Pt has medicare. Prior authorization is not required as services are based on medical necessity and follow medicare guidelines.
--- NOTE | 2022-05-27 11:18 | ONC.NURNOTE ---
Per Dr partida treatment plan for Sid has been changed Lonsurf RX with [facility] has been canceled this was never dispensed and patient never started this medication New RX submitted Tucatinib 150 mg tab take 2 tabs (300mg) BID disp #120 with 2 refills sports book writer info given PA status pending per [facility] [phone] ?
--- NOTE | 2022-05-29 15:09 | ONC.NURNOTE ---
PA started via covermymeds for Tukysa
[2022-06-02 12:42] VITALS: BP 121/77; PULSE 76; RESP 16; TEMP 36.9; O2SAT 98
[2022-06-02 13:27] LABS: Basophils Absolute Auto 0.07 K/uL (0.00-0.30); Basophils Percent Auto 0.9 % (0.0-3.0); Eosinophils Percent Auto 7.2 % (0.0-7.0); Hemoglobin* 12.8 gm/dL (13.5-17.5); Immature Granulocytes Abs Auto 0.01 K/uL (0.00-0.30); Immature Granulocytes Pct Auto 0.1 %; Lymphocytes Absolute Auto 1.74 K/uL (0.90-2.90); Lymphocytes Percent Auto 22.3 % (20-44); Mean Corpuscular HGB Conc 32 gm/dL (32-36); Mean Corpuscular Hemoglobin 26 pg (26-34); Mean Corpuscular Volume 81 fL (80-100); Monocytes Percent Auto 9.7 % (0.0-11.0); Neutrophils Absolute Auto 4.68 K/uL (1.7-7.0); Neutrophils Percent Auto 59.8 % (42.0-72.0); Platelet Count* 232 K/uL (140-440); RDW Coefficient of Variation % 14.7 % (11.5-15.5); Red Blood Count 4.95 m/uL (4.30-5.90); White Blood Count* 7.82 K/uL (4.50-11.00)
[2022-06-02 13:33] LABS: Albumin* 4.1 g/dL (3.3-5.0); Chloride* 101 mmol/L (96-114)
[2022-06-02 13:34] LABS: Potassium* 4.1 mmol/L (3.6-5.1); Sodium* 137 mmol/L (135-149)
[2022-06-02 13:36] LABS: Alkaline Phosphatase* 127 U/L (40-150); Aspartate Amino Transferase* 33 U/L (12-35); Bilirubin Total* 0.6 mg/dL (0.1-1.5); Blood Urea Nitrogen* 14 mg/dL (7-30); Carbon Dioxide* 27 mmol/L (20-32); Creatinine* 0.8 mg/dL (0.5-1.5); Est. Creatinine Clearance* 75.46; Estimated Glomerular Filt Rate 94 ml/min; Total Protein* 7.1 g/dL (6.0-8.3)
[2022-06-02 13:37] LABS: Alanine Aminotransferase* 21 U/L (4-50); Calcium* 9.4 mg/dL (8.4-10.6); Glucose* 114 mg/dL (60-115); Slide Review Reflex No
[2022-06-02] MEDS: SODIUM CHLORIDE 0.9 % (FLUSH) 10 ML SYRINGE IVF (14:20)
[2022-06-02] MEDS: HEPARIN 500 UNIT/5 ML SYRINGE IVF (14:20)
--- NOTE | 2022-06-02 16:07 | ONC.NURNOTE ---
instructions on Tucatinib reviewed handouts, diarrhea management, hydration, calling early with toxicities, hand/foot erythema, lab changes questions addressed pending medication arrival will need lab and MD follow up appts
--- NOTE | 2022-06-02 16:09 | ONC.NURNOTE ---
Addendum entered by Juhi Javier RN 06/04/22 14:33: Phone call to [facility] - RX still in process- no further action completed Original Note: New RX submitted to [facility] for Tucatinib signed by Dr Harmeet Simon is in the processing of rechecking the PA and will contact Sid when it is ready to be shipped out Sid and Emily have been advised of this
--- NOTE | 2022-06-03 16:05 | PC.NURSE ---
First Herceptin check in Called pt today to check in after his first Herceptin dose yesterday. Pt states he is doing well and has no concerns. He will be back tomorrow. Support offered.
[2022-06-04 14:28] VITALS: BP 118/74; PULSE 80; RESP 16; TEMP 37.2; O2SAT 97
[2022-06-04] MEDS: SODIUM CHLORIDE 0.9 % (FLUSH) 10 ML SYRINGE IVF (15:45)
[2022-06-04] MEDS: HEPARIN 500 UNIT/5 ML SYRINGE IVF (15:45)
[2022-06-04] MEDS: 0.9 % SODIUM CHLORIDE 250 ml IV (15:46)
--- NOTE | 2022-06-09 13:37 | ONC.NURNOTE ---
RX for Tucatinib still in process at [facility] There is some delay in understanding/obtaining the PA
--- NOTE | 2022-06-10 09:55 | ONC.NURNOTE ---
Appeal started for Tucatinib Drug has been denied coverage and requires clinical support for the appeal info faxed to [facility] Clinical Appeal Dept study supporting regimen herceptin/tucatinib provider notes faxed to [phone] tucatinib pending FDA approval in 07/2022 Dr Ga notified of appeal Eimly notified of process
--- NOTE | 2022-06-16 10:22 | ONC.NURNOTE ---
Tucatinib not yet FDA approved -PA appeal denied until FDA approval -[facility] will look for any copay programs with funding -Dr Ga notified of status and plans to continue with herceptin as ordered and will add tucatinib when approved -per website- approval anticipated in 07/2022 -Emily phoned with this information
[2022-06-22 09:17] LABS: Basophils Absolute Auto 0.05 K/uL (0.00-0.30); Basophils Percent Auto 0.6 % (0.0-3.0); Eosinophils Percent Auto 6.4 % (0.0-7.0); Hematocrit 38.2 % (37.0-53.0); Hemoglobin* 12.3 gm/dL (13.5-17.5); Immature Granulocytes Abs Auto 0.01 K/uL (0.00-0.30); Immature Granulocytes Pct Auto 0.1 %; Lymphocytes Percent Auto 16.4 % (20-44); Mean Corpuscular HGB Conc 32 gm/dL (32-36); Mean Corpuscular Hemoglobin 26 pg (26-34); Mean Corpuscular Volume 79 fL (80-100); Monocytes Percent Auto 10.8 % (0.0-11.0); Neutrophils Absolute Auto 5.15 K/uL (1.7-7.0); Neutrophils Percent Auto 65.7 % (42.0-72.0); Platelet Count* 219 K/uL (140-440); RDW Coefficient of Variation % 14.4 % (11.5-15.5); Red Blood Count 4.81 m/uL (4.30-5.90); White Blood Count* 7.85 K/uL (4.50-11.00)
[2022-06-22 09:19] LABS: Slide Review Reflex No
[2022-06-22 09:27] LABS: Chloride* 106 mmol/L (96-114)
[2022-06-22 09:28] LABS: Potassium* 3.7 mmol/L (3.6-5.1); Sodium* 138 mmol/L (135-149)
[2022-06-22 09:30] LABS: Alanine Aminotransferase* 20 U/L (4-50); Alkaline Phosphatase* 126 U/L (40-150); Aspartate Amino Transferase* 33 U/L (12-35); Bilirubin Total* 0.6 mg/dL (0.1-1.5); Blood Urea Nitrogen* 14 mg/dL (7-30); Carbon Dioxide* 27 mmol/L (20-32); Creatinine* 0.8 mg/dL (0.5-1.5); Est. Creatinine Clearance* 75.46; Estimated Glomerular Filt Rate 94 ml/min; Glucose* 90 mg/dL (60-115); Total Protein* 7.2 g/dL (6.0-8.3)
[2022-06-22 09:31] LABS: Calcium* 9.2 mg/dL (8.4-10.6)
[2022-06-22] MEDS: 0.9 % SODIUM CHLORIDE 250 ml IV (10:59)
[2022-06-22] MEDS: HEPARIN 500 UNIT/5 ML SYRINGE IVF (10:59)
[2022-06-22] MEDS: SODIUM CHLORIDE 0.9 % (FLUSH) 10 ML SYRINGE IVF (10:59)
[2022-07-13 08:12] LABS: Basophils Absolute Auto 0.06 K/uL (0.00-0.30); Basophils Percent Auto 0.9 % (0.0-3.0); Eosinophils Absolute Auto 0.43 K/uL (0.00-0.50); Eosinophils Percent Auto 6.3 % (0.0-7.0); Hematocrit 34.9 % (37.0-53.0); Hemoglobin* 10.9 gm/dL (13.5-17.5); Immature Granulocytes Abs Auto 0.02 K/uL (0.00-0.30); Immature Granulocytes Pct Auto 0.3 %; Lymphocytes Percent Auto 13.6 % (20-44); Mean Corpuscular HGB Conc 31 gm/dL (32-36); Mean Corpuscular Hemoglobin 25 pg (26-34); Mean Corpuscular Volume 80 fL (80-100); Monocytes Percent Auto 8.8 % (0.0-11.0); Neutrophils Absolute Auto 4.78 K/uL (1.7-7.0); Neutrophils Percent Auto 70.1 % (42.0-72.0); Platelet Count* 208 K/uL (140-440); RDW Coefficient of Variation % 14.7 % (11.5-15.5); Red Blood Count 4.39 m/uL (4.30-5.90); White Blood Count* 6.82 K/uL (4.50-11.00)
[2022-07-13 08:16] LABS: Slide Review Reflex No
[2022-07-13 08:21] LABS: Albumin* 3.9 g/dL (3.3-5.0)
[2022-07-13 08:22] LABS: Chloride* 106 mmol/L (96-114); Potassium* 3.6 mmol/L (3.6-5.1); Sodium* 139 mmol/L (135-149)
[2022-07-13 08:24] LABS: Aspartate Amino Transferase* 38 U/L (12-35); Bilirubin Total* 0.7 mg/dL (0.1-1.5); Carbon Dioxide* 27 mmol/L (20-32); Creatinine* 0.8 mg/dL (0.5-1.5); Est. Creatinine Clearance* 75.46; Estimated Glomerular Filt Rate 94 ml/min; Total Protein* 6.9 g/dL (6.0-8.3)
[2022-07-13 08:25] LABS: Alanine Aminotransferase* 22 U/L (4-50); Alkaline Phosphatase* 125 U/L (40-150); Blood Urea Nitrogen* 15 mg/dL (7-30); Calcium* 8.9 mg/dL (8.4-10.6); Glucose* 107 mg/dL (60-115)
[2022-07-13 08:34] VITALS: BP 133/80; PULSE 86; RESP 16; TEMP 36.6; O2SAT 98
[2022-07-13] MEDS: HEPARIN 500 UNIT/5 ML SYRINGE IVF (09:40)
[2022-07-13] MEDS: SODIUM CHLORIDE 0.9 % (FLUSH) 10 ML SYRINGE IVF (09:40)
[2022-08-03 09:22] LABS: Basophils Absolute Auto 0.05 K/uL (0.00-0.30); Basophils Percent Auto 0.8 % (0.0-3.0); Eosinophils Absolute Auto 0.41 K/uL (0.00-0.50); Eosinophils Percent Auto 6.2 % (0.0-7.0); Hematocrit 33.9 % (37.0-53.0); Hemoglobin* 10.7 gm/dL (13.5-17.5); Immature Granulocytes Abs Auto 0.02 K/uL (0.00-0.30); Immature Granulocytes Pct Auto 0.3 %; Lymphocytes Percent Auto 12.9 % (20-44); Mean Corpuscular HGB Conc 32 gm/dL (32-36); Mean Corpuscular Hemoglobin 25 pg (26-34); Mean Corpuscular Volume 78 fL (80-100); Monocytes Percent Auto 12.1 % (0.0-11.0); Neutrophils Absolute Auto 4.48 K/uL (1.7-7.0); Neutrophils Percent Auto 67.7 % (42.0-72.0); Platelet Count* 229 K/uL (140-440); Red Blood Count 4.36 m/uL (4.30-5.90); White Blood Count* 6.61 K/uL (4.50-11.00)
[2022-08-03 09:27] LABS: Slide Review Reflex No
[2022-08-03 09:38] LABS: Albumin* 3.8 g/dL (3.3-5.0); Chloride* 106 mmol/L (96-114); Potassium* 3.9 mmol/L (3.6-5.1); Sodium* 139 mmol/L (135-149)
[2022-08-03 09:40] LABS: Creatinine* 0.8 mg/dL (0.5-1.5); Est. Creatinine Clearance* 75.46; Estimated Glomerular Filt Rate 94 ml/min
[2022-08-03 09:41] LABS: Alanine Aminotransferase* 20 U/L (4-50); Alkaline Phosphatase* 118 U/L (40-150); Aspartate Amino Transferase* 34 U/L (12-35); Bilirubin Total* 0.6 mg/dL (0.1-1.5); Blood Urea Nitrogen* 12 mg/dL (7-30); Carbon Dioxide* 29 mmol/L (20-32); Glucose* 92 mg/dL (60-115); Total Protein* 6.9 g/dL (6.0-8.3)
[2022-08-03 09:42] LABS: Calcium* 8.9 mg/dL (8.4-10.6)
[2022-08-03] MEDS: HEPARIN 500 UNIT/5 ML SYRINGE IVF (11:40)
[2022-08-03] MEDS: SODIUM CHLORIDE 0.9 % (FLUSH) 10 ML SYRINGE IVF (11:40)
--- NOTE | 2022-08-04 12:01 | URNOTE ---
Request received for Herceptin/Trastuzumab ([id number]). Prior authorization is approved by [facility] Ref#[id number], from 08/03/2022 to 08/03/2023.
--- NOTE | 2022-08-14 10:10 | ONC.NURNOTE ---
Tucatinib received FDA approval yesterday for indication for this patient Sanket @ [facility] called, insurance change discussed [facility] will start the PA process and will contact this video game script writer with any questions [employer] contacted patient/Emily with update
--- NOTE | 2022-08-18 11:29 | ONC.NURNOTE ---
Per RAPHAEL pharmacist at [facility] $10.35/month will be shipped to patient this week
== END 2022-08-22 23:59 | disposition home or self-care (01) ==
LOC: CCIC 08:45
PROVIDERS: Clinical Nurse Specialist; PCP Physician Assistant; Referring Provider Physician Assistant; Visit Provider Internal Medicine Medical Oncology
DX: C20 Malignant neoplasm of rectum (principal); C78.00 Secondary malignant neoplasm of unspecified lung; G62.0 Drug-induced polyneuropathy; T45.1X5A Adverse effect of antineoplastic and immunosuppressive drugs, initial encounter; K62.5 Hemorrhage of anus and rectum
CPT/HCPCS: 36415; 36591; 80053; 81003; 85025; 96365; 96366; 96376; 96413; 96415; 96416; 99211; 99212; 99213; 99214; 99215; 99442; J0640; J1626; J1642; J7050; J9035; J9190; J9355

== ENCOUNTER 2022-08-24 08:53 | Outpatient (CLI) | payer MEDICARE, SELFPAY ==
--- NOTE | 2022-08-24 10:00 | CRLHL7_ITS ---
For Patients: As a result of the Century Cures Act, medical imaging exams and procedure reports are released immediately into your electronic medical record. You may view this report before your referring provider. If you have questions, please contact your health care provider. Indication: METASTATIC RECTAL CARCINOMA TO LUNG,ASSESS DISEASE Technique: Post contrast CT chest. 75 cc Isovue 370 intravenous contrast. Please note that all CT scans at this facility use dose modulation, iterative reconstruction, and/or weight-based dosing when appropriate to reduce radiation dose to as low as reasonably achievable. Comparison: CT abdomen and pelvis 07/03/2022, CT chest abdomen and pelvis 02/16/2022 Findings: Innumerable large multilobular hypodense masses are present throughout the lungs which have increased in size and numbers compared to the prior exams. The largest conglomerate masslike area measures approximately 9 centimeters in total dimension. Increased size of lobular nodularity of the left adrenal gland. The right adrenal gland is normal. The visualized kidneys are within normal limits. The gallbladder is normal. No calcified gallstones or biliary obstruction. There no discernible intrahepatic mass. Mediastinal lymph nodes appear normal. No discernible hilar adenopathy. Normal axillary lymph nodes. Left-sided Port-A-Cath. No intrinsic osseous lesion. No fracture. Impression: Progression of metastatic disease with increased size and number of large conglomerate soft tissue masses throughout the lungs. Please note that all CT scans at this facility use dose modulation, iterative reconstruction, and/or weight-based dosing when appropriate to reduce radiation dose to as low as reasonably achievable. Dictated by Flako lCark MD @ 08/24/2022 1:08:23 PM (Electronically Signed)
== END 2022-08-24 08:54 | disposition home or self-care (01) ==
LOC: CT 08:54
PROVIDERS: PCP Physician Assistant; Visit Provider Internal Medicine Medical Oncology
DX: C78.00 Secondary malignant neoplasm of unspecified lung (principal); C20 Malignant neoplasm of rectum
CPT/HCPCS: 71260; Q9967

== ENCOUNTER 2022-10-16 21:55 | Emergency (ER) | payer MEDICARE, SELFPAY ==
[2022-10-16 22:01] VITALS: O2SAT 99
--- NOTE | 2022-10-16 22:01 | CRLHL7_ITS ---
For Patients: As a result of the Century Cures Act, medical imaging exams and procedure reports are released immediately into your electronic medical record. You may view this report before your referring provider. If you have questions, please contact your health care provider. INDICATION: Lower extremity swelling. TECHNIQUE: Ultrasound venous duplex bilateral lower extremity. Compression venous exam was performed using christianson-scale, color Doppler, and spectral Doppler analysis. COMPARISON: None. FINDINGS: Deep veins: Sonographic imaging demonstrates the bilateral common femoral, deep femoral, superficial femoral, popliteal, posterior tibial and peroneal veins to be fully compressible with normal color Doppler blood flow. Superficial veins: Greater saphenous veins are fully compressible. No popliteal cyst. IMPRESSION: No deep venous thrombosis within the evaluated veins of the bilateral lower extremities. Dictated by Galen Kang MD @ 10/16/2022 10:51:52 PM (Electronically Signed)
--- NOTE | 2022-10-16 22:02 | ED_ITS ---
HPI - General Adult General Chief complaint: Lower Extremity Swelling Stated complaint: Swollen Legs and ankle Time Seen by Provider: 10/16/22 22:03 History of Present Illness HPI narrative: Pt is a 72 year old gentleman who is going through chemotherapy for metastatic colorectal cancer who presents with one week of lower extremity edema. Pt had a CT chest abd and pelvis earlier today as part of his oncology care which showed pulmonary metastasis. Pt has had no chest pain shortness of breath, fevers, chills, cough. Pt has had radiation therapy of the primary rectal tumor as well. The edema is equal bilaterally. No erythema or skin breakdown. Pt has no pain and is otherwise asymptomatic. Pt has had no similar symptoms previously. Related Data Home Medications Medication Instructions Recorded Confirmed lorazepam 0.5 mg tablet 0.5 mg PO Q4H PRN 01/22/22 10/16/22 multivitamin 1 tab PO DAILY 01/22/22 10/16/22 naproxen 220 mg-diphenhydramine 25 1 tab PO HS 01/22/22 10/16/22 mg tablet ondansetron HCl 4 mg tablet 4 mg PO Q6H PRN 01/22/22 10/16/22 prochlorperazine maleate 10 mg 10 mg PO Q6-8H PRN 01/22/22 10/16/22 tablet Previous Rx's Medication Instructions Recorded tucatinib 150 mg tablet 300 mg PO Q12H #120 tabs 05/25/22 Allergies Allergy/AdvReac Type Severity Reaction Status Date / Time No Known Drug Allergies Allergy Verified 10/16/22 22:05 Review of Systems Status of ROS: Reports: 10 or more systems reviewed and unremarkable except as noted in History and below [facility] Medical History (Updated 10/16/22 @ 23:03 by Nilesh Kurtz MD) 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 ?C20 - Malignant neoplasm of rectum (ICD-10) ?C79.89 - Secondary malignant neoplasm of other specified sites (ICD-10) Encounter for postoperative care ?Z48.89 - Encounter for other specified surgical aftercare (ICD-10) Herpes zoster ?B02.9 - Zoster without complications (ICD-10) Rectal cancer ?C20 - Malignant neoplasm of rectum (ICD-10) Ulcerative lesion Surgical History (Updated 10/16/22 @ 22:17 by Roberto Carlos Iglesias RN) No significant past surgical history Social History Smoking Status: Never smoker Second hand tobacco smoke exposure: No How often do you have a drink containing alcohol: never How often do you have six or more drinks on one occasion: Never AUDIT-C Alcohol total score: 0 Non-prescribed substance use: denies use service: No Exam Narrative: Exam Narrative: EXAM GENERAL: Patient appears comfortable and well. EYES: No scleral icterus. ENT: Tympanic membranes and oropharynx normal. THYROID: no thyroid nodules or thyromegaly. LYMPH: No supraclavicular or cervical lymphadenopathy. SKIN: Visible skin seen during exam normal or with benign process only. EXT: 1 plus lower extremity edema to the mid calf equal bilaterally with no erythema noted. HEART: Regular rate and rhythm with a soft II/ systolic murmur LUNGS: Clear to auscultation bilaterally with no crackles or wheezes. ABD: Soft, non tender, non distended. PSYCH: Good eye contact, speech is not pressured. Const: Vital Signs, click to edit/add: Vital Signs - 24 hr 10/16/22 22:04 Temperature 98.2 F Pulse Rate [Right Pulse Oximeter] 99 Respiratory Rate 18 Blood Pressure [Le ft Upper Arm] 135/82 Pulse Oximetry 95 Oxygen Delivery Me thod Room Air Course Course Hospital Course: Pt seen and examined. EKG, Tropoinin, CBC, BMP, Ultrasound of the lower extremities ordered. Reevaluation(s) Reevaluation #1: Doppler negative for DVT. Echo reviewed showing only moderate MR. Vital Signs Vital signs: Initial Vital Signs Temperature 98.2 F 10/16/22 22:04 Temperature Source Temporal Artery Scan 10/16/22 22:04 Pulse Rate 99 10/16/22 22:04 Respiratory Rate 18 10/16/22 22:04 Blood Pressure 135/82 10/16/22 22:04 Blood Pressure Mean 99 10/16/22 22:04 Blood Pressure Position Sitting 10/16/22 22:04 Pulse Oximetry 95 10/16/22 22:04 Oxygen Delivery Method Room Air 10/16/22 22:04 Vital Signs Temperature 98.2 F 10/16/22 22:04 Pulse Rate 99 10/16/22 22:04 Respiratory Rate 18 10/16/22 22:04 Blood Pressure 135/82 10/16/22 22:04 Pulse Oximetry 95 10/16/22 22:04 Oxygen Delivery Method Room Air 10/16/22 22:04 Temperature 98.2 F 10/16/22 22:04 Pulse Rate 99 10/16/22 22:04 Respiratory Rate 18 10/16/22 22:04 Blood Pressure 135/82 10/16/22 22:04 Pulse Oximetry 95 10/16/22 22:04 Oxygen Delivery Method Room Air 10/16/22 22:04 Medical Decision Making MDM Narrative Medical decision making narrative: Pt is a 72 year old who is going through chemotherapy for colorectal cancer. He presents with mild lower extremity edema. EKG upon my review is normal. Pt had CT of chest abd and pelvis earlier today which showed known pulmonary metastasis. Pt has chronic anemia, bmp is stable, troponin is negative. Venous duplex of the lower extremity is negative. Pt's edema is minimal. Reassurance offered. Differential includes DVT, Cellulitis, Strian, Bleeding. Pt has MR on echo but does not appear to be in acute CHF. Medical Records Medical records reviewed: Yes I reviewed the patient's medical records Lab Data Labs: Lab Results 10/16/22 Range/Units 22:12 WBC 10.67 (4.50-11.00) K/uL RBC 4.24 L (4.30-5.90) m/uL Hgb 9.4 L (13.5-17.5) gm/dL Hct 29.8 L (37.0-53.0) % MCV 70 L (80-100) fL MCH 22 L (26-34) pg MCHC 32 (32-36) gm/dL RDW Coeff of Keyur 16.7 H (11.5-15.5) % Plt Count 314 (140-440) K/uL Neut % (Auto) 75.6 H (42.0-72.0) % Lymph % (Auto) 10.6 L (20-44) % [place] % (Auto) 9.0 (0.0-11.0) % Eos % (Auto) 4.0 (0.0-7.0) % Baso % (Auto) 0.6 (0.0-3.0) % Neut # (Auto) 8.10 H (1.7-7.0) K/uL Lymph # (Auto) 1.10 (0.90-2.90) K/uL [place] # (Auto) 1.00 H (0.00-0.90) K/UL Eos # (Auto) 0.43 (0.00-0.50) K/uL Baso # (Auto) 0.06 (0.00-0.30) K/uL Sodium 131 L (135-149) mmol/L Potassium 4.1 (3.6-5.1) mmol/L Chloride 100 (96-114) mmol/L Carbon Dioxide 26 (20-32) mmol/L BUN 17 (7-30) mg/dL Creatinine 0.8 (0.5-1.5) mg/dL Estimated Creat Clear 77.63 Estimated GFR 94 ml/min Glucose 115 (60-115) mg/dL Calcium 8.8 (8.4-10.6) mg/dL Troponin I < 0.01 L (0.01-0.04) ng/mL Discharge Plan Discharge Clinical Impression: Edema Condition: Stable Instructions: Edema (ED) Additional Instructions: Continue current care Follow up with PCP as needed Activity Level: No Restrictions Discharge Diet: Regular Prescriptions: No Action lorazepam 0.5 mg tablet 0.5 mg PO Q4H PRN Patient Comments: TAKE ONE TABLET BY MOUTH THREE TIMES DAILY NEEDED for nausea uncontrolled with compazine ondansetron HCl 4 mg tablet 4 mg PO Q6H PRN Patient Comments: take 1 tablet by mouth every 6 hours as needed if compazine is ineffective to control nausea. Do not take within 24 hours of chemotherapy. multivitamin Tablet 1 tab PO DAILY naproxen-diphenhydramine 220-25 mg tablet 1 tab PO HS prochlorperazine maleate 10 mg tablet 10 mg PO Q6-8H PRN tucatinib 150 mg tablet 300 mg PO Q12H Qty: 120 2RF Follow Up/Referrals: Jaja Duarte PA [Primary Care Provider] - Stand Alone Forms: [facility] Info Instructions
[2022-10-16 22:04] VITALS: BP 135/82; PULSE 99; RESP 18; TEMP 36.8; O2SAT 95; BMI 25.0
[2022-10-16 22:16] LABS: Basophils Absolute Auto 0.06 K/uL (0.00-0.30); Basophils Percent Auto 0.6 % (0.0-3.0); Eosinophils Absolute Auto 0.43 K/uL (0.00-0.50); Hematocrit 29.8 % (37.0-53.0); Hemoglobin* 9.4 gm/dL (13.5-17.5); Immature Granulocytes Abs Auto 0.02 K/uL (0.00-0.30); Immature Granulocytes Pct Auto 0.2 %; Lymphocytes Percent Auto 10.6 % (20-44); Mean Corpuscular HGB Conc 32 gm/dL (32-36); Mean Corpuscular Hemoglobin 22 pg (26-34); Mean Corpuscular Volume 70 fL (80-100); Neutrophils Percent Auto 75.6 % (42.0-72.0); Platelet Count* 314 K/uL (140-440); RDW Coefficient of Variation % 16.7 % (11.5-15.5); Red Blood Count 4.24 m/uL (4.30-5.90); White Blood Count* 10.67 K/uL (4.50-11.00)
[2022-10-16 22:21] LABS: Slide Review Reflex No
[2022-10-16 22:31] LABS: Chloride* 100 mmol/L (96-114); Sodium* 131 mmol/L (135-149)
[2022-10-16 22:32] LABS: Potassium* 4.1 mmol/L (3.6-5.1)
[2022-10-16 22:34] LABS: Creatinine* 0.8 mg/dL (0.5-1.5); Est. Creatinine Clearance* 77.63; Estimated Glomerular Filt Rate 94 ml/min
[2022-10-16 22:35] LABS: Blood Urea Nitrogen* 17 mg/dL (7-30); Calcium* 8.8 mg/dL (8.4-10.6); Carbon Dioxide* 26 mmol/L (20-32); Glucose* 115 mg/dL (60-115)
[2022-10-16 22:47] LABS: Troponin I* < 0.01 ng/mL (0.01-0.04)
[2022-10-16 22:59] VITALS: BP 128/78; PULSE 89; RESP 18; TEMP 36.7; O2SAT 95
[2022-10-16 23:10] VITALS: BP 128/78; PULSE 89; RESP 18; TEMP 36.7
== END 2022-10-16 23:16 | disposition home or self-care (01) ==
LOC: ED 23:16
PROVIDERS: Emergency Provider Internal Medicine; PCP Physician Assistant
DX: R60.9 Edema, unspecified (principal)
CPT/HCPCS: 36415; 71260; 74177; 80048; 84484; 85025; 93005; 93306; 93970; 94761; 99283; 99285; Q9967

== ENCOUNTER 2022-10-26 09:15 | Outpatient (RCR) | payer MEDICARE, SELFPAY ==
[2022-08-24 09:00] VITALS: BP 130/83; PULSE 81; RESP 16; TEMP 36.1; O2SAT 97
[2022-08-24 09:25] LABS: Basophils Absolute Auto 0.06 K/uL (0.00-0.30); Basophils Percent Auto 0.7 % (0.0-3.0); Eosinophils Absolute Auto 0.55 K/uL (0.00-0.50); Eosinophils Percent Auto 6.5 % (0.0-7.0); Hematocrit 35.2 % (37.0-53.0); Hemoglobin* 11.3 gm/dL (13.5-17.5); Immature Granulocytes Abs Auto 0.01 K/uL (0.00-0.30); Immature Granulocytes Pct Auto 0.1 %; Lymphocytes Percent Auto 13.4 % (20-44); Mean Corpuscular HGB Conc 32 gm/dL (32-36); Mean Corpuscular Hemoglobin 24 pg (26-34); Mean Corpuscular Volume 75 fL (80-100); Monocytes Percent Auto 9.5 % (0.0-11.0); Neutrophils Percent Auto 69.8 % (42.0-72.0); Platelet Count* 216 K/uL (140-440); RDW Coefficient of Variation % 15.6 % (11.5-15.5); Red Blood Count 4.71 m/uL (4.30-5.90); White Blood Count* 8.45 K/uL (4.50-11.00)
[2022-08-24 09:30] LABS: Slide Review Reflex No
[2022-08-24 09:44] LABS: Phosphorus* 3.7 mg/dL (2.5-4.5)
[2022-08-24 09:45] LABS: Magnesium* 2.1 mg/dL (1.5-2.6)
[2022-08-24 10:10] LABS: Albumin* 3.9 g/dL (3.3-5.0); Chloride* 104 mmol/L (96-114); Sodium* 138 mmol/L (135-149)
[2022-08-24 10:13] LABS: Alanine Aminotransferase* 19 U/L (4-50); Aspartate Amino Transferase* 37 U/L (12-35); Bilirubin Total* 0.7 mg/dL (0.1-1.5); Blood Urea Nitrogen* 15 mg/dL (7-30); Carbon Dioxide* 30 mmol/L (20-32); Creatinine* 0.7 mg/dL (0.5-1.5); Estimated Glomerular Filt Rate 98 ml/min; Total Protein* 7.3 g/dL (6.0-8.3)
[2022-08-24 10:14] LABS: Calcium* 9.3 mg/dL (8.4-10.6); Glucose* 98 mg/dL (60-115)
[2022-08-24 10:21] LABS: Alkaline Phosphatase* 132 U/L (40-150)
--- NOTE | 2022-08-28 08:56 | ONC.NURNOTE ---
New start tucatinib- follow up phone call senior copywriter spoke with Emily reports no change in bowels this week reports Sid has increased his hydration and is meeting the 64 oz/day recommendation no arthalgias or rash taking the prescribed dose 2X 150 mg BID
--- NOTE | 2022-09-01 11:23 | ONC.NURNOTE ---
Inpatient Care Manager Rn called and spoke to patient and he states he's doing fine with one time incident of one drop of loose stool and continues to drink recommended water of 64 oz/day.
--- NOTE | 2022-09-09 14:37 | ONC.NURNOTE ---
Tucatinib start follow up call; Emily reports that Sid has a cough that has been present since starting the herceptin, but seems to be more frequent and persistent in the recent weeks patient sees Dr Ga on Wednesday- to discuss further at that time Emily states this a non productive cough no fever no rash no change in bowel habits denies any loose or watery stools reports bowels per his baseline
[2022-09-14 09:56] VITALS: BP 120/71; PULSE 87; RESP 16; TEMP 36.9; O2SAT 97
[2022-09-14 10:01] LABS: Basophils Absolute Auto 0.07 K/uL (0.00-0.30); Basophils Percent Auto 0.8 % (0.0-3.0); Eosinophils Percent Auto 5.5 % (0.0-7.0); Hematocrit 34.4 % (37.0-53.0); Hemoglobin* 10.8 gm/dL (13.5-17.5); Immature Granulocytes Abs Auto 0.03 K/uL (0.00-0.30); Immature Granulocytes Pct Auto 0.3 %; Lymphocytes Percent Auto 11.4 % (20-44); Mean Corpuscular HGB Conc 31 gm/dL (32-36); Mean Corpuscular Hemoglobin 23 pg (26-34); Mean Corpuscular Volume 74 fL (80-100); Monocytes Percent Auto 8.7 % (0.0-11.0); Neutrophils Percent Auto 73.3 % (42.0-72.0); Platelet Count* 258 K/uL (140-440); Red Blood Count 4.64 m/uL (4.30-5.90)
[2022-09-14 10:08] LABS: Slide Review Reflex No
[2022-09-14 10:11] LABS: Albumin* 3.7 g/dL (3.3-5.0); Chloride* 105 mmol/L (96-114); Potassium* 3.6 mmol/L (3.6-5.1); Sodium* 138 mmol/L (135-149)
[2022-09-14 10:14] LABS: Alanine Aminotransferase* 20 U/L (4-50); Alkaline Phosphatase* 130 U/L (40-150); Aspartate Amino Transferase* 30 U/L (12-35); Bilirubin Total* 0.7 mg/dL (0.1-1.5); Blood Urea Nitrogen* 10 mg/dL (7-30); Carbon Dioxide* 27 mmol/L (20-32); Estimated Glomerular Filt Rate 80 ml/min; Glucose* 122 mg/dL (60-115); Total Protein* 7.1 g/dL (6.0-8.3)
[2022-09-14 12:17] LABS: Phosphorus* 3.1 mg/dL (2.5-4.5)
[2022-09-17 12:28] LABS: Iron* 23 ug/dL (49-181)
[2022-09-17 12:37] LABS: Percent Iron Saturation 7 % (20-50); Total Iron Binding Capacity 313 ug/dL (261-462)
[2022-09-17 13:04] LABS: Ferritin* 31.2 ng/mL (17.9-464.0)
[2022-10-05 10:36] LABS: Albumin* 3.5 g/dL (3.3-5.0); Chloride* 104 mmol/L (96-114)
[2022-10-05 10:37] LABS: Potassium* 3.7 mmol/L (3.6-5.1); Sodium* 137 mmol/L (135-149)
[2022-10-05 10:39] LABS: Alkaline Phosphatase* 131 U/L (40-150); Aspartate Amino Transferase* 28 U/L (12-35); Bilirubin Total* 0.7 mg/dL (0.1-1.5); Blood Urea Nitrogen* 11 mg/dL (7-30); Carbon Dioxide* 28 mmol/L (20-32); Creatinine* 1.1 mg/dL (0.5-1.5); Estimated Glomerular Filt Rate 71 ml/min; Total Protein* 6.8 g/dL (6.0-8.3)
[2022-10-05 10:40] LABS: Alanine Aminotransferase* 19 U/L (4-50); Calcium* 9.1 mg/dL (8.4-10.6); Glucose* 104 mg/dL (60-115); Hematocrit 31.9 % (37.0-53.0); Hemoglobin* 9.9 gm/dL (13.5-17.5); Mean Corpuscular HGB Conc 31 gm/dL (32-36); Mean Corpuscular Hemoglobin 22 pg (26-34); Mean Corpuscular Volume 72 fL (80-100); Platelet Count* 308 K/uL (140-440); RDW Coefficient of Variation % 16.6 % (11.5-15.5); Red Blood Count 4.45 m/uL (4.30-5.90); White Blood Count* 9.37 K/uL (4.50-11.00)
[2022-10-05 10:41] LABS: Basophils Percent Auto 0.6 % (0.0-3.0); Eosinophils Percent Auto 5.1 % (0.0-7.0); Immature Granulocytes Pct Auto 0.4 %; Lymphocytes Percent Auto 11.6 % (20-44); Monocytes Percent Auto 10.6 % (0.0-11.0); Neutrophils Percent Auto 71.7 % (42.0-72.0); Slide Review Acceptable Review (Acceptable); Slide Review Reflex Yes
[2022-10-05] MEDS: SODIUM CHLORIDE 0.9 % (FLUSH) 10 ML SYRINGE IVF (12:42)
[2022-10-05] MEDS: HEPARIN 500 UNIT/5 ML SYRINGE IVF (12:42)
--- NOTE | 2022-10-08 15:51 | ONC.NURNOTE ---
Follow up diarrhea: taking 2 imodium every am past few days he has had normal stools since starting imodium instructed to watch for constipation suggested trying 1 imodium to see if that will also control loose stools and to stop imodium is stools get firmer reminded to call [facility] with increase in watery stools- 3 or more/day
--- NOTE | 2022-10-09 15:24 | ONC.NURNOTE ---
Addendum entered by Juhi Javier RN 10/09/22 15:29: add- no redness or pain was seen by Dr Ga this week Original Note: Emily Phoned in about ongoing lower extremtity edema reports worsening bilaterally currently keeping feet elevated as instructed walking around and watching salt in diet scheduled for an echo next week and CT Emily would like to hold the tucatinib for one week to see if swelling and cough improves plan to follow up in one week by phone
[2022-10-26 09:30] LABS: Basophils Absolute Auto 0.05 K/uL (0.00-0.30); Basophils Percent Auto 0.5 % (0.0-3.0); Eosinophils Absolute Auto 0.38 K/uL (0.00-0.50); Eosinophils Percent Auto 3.6 % (0.0-7.0); Hematocrit 28.9 % (37.0-53.0); Immature Granulocytes Abs Auto 0.04 K/uL (0.00-0.30); Immature Granulocytes Pct Auto 0.4 %; Mean Corpuscular HGB Conc 31 gm/dL (32-36); Mean Corpuscular Hemoglobin 22 pg (26-34); Mean Corpuscular Volume 69 fL (80-100); Monocytes Percent Auto 10.3 % (0.0-11.0); Neutrophils Percent Auto 77.2 % (42.0-72.0); Platelet Count* 355 K/uL (140-440); RDW Coefficient of Variation % 17.1 % (11.5-15.5); Red Blood Count 4.17 m/uL (4.30-5.90); White Blood Count* 10.44 K/uL (4.50-11.00)
[2022-10-26 09:33] LABS: Slide Review Reflex No
[2022-10-26 09:41] LABS: Chloride* 101 mmol/L (96-114)
[2022-10-26 09:42] LABS: Albumin* 3.5 g/dL (3.3-5.0); Potassium* 3.5 mmol/L (3.6-5.1); Sodium* 134 mmol/L (135-149)
[2022-10-26 09:45] LABS: Alanine Aminotransferase* 30 U/L (4-50); Alkaline Phosphatase* 117 U/L (40-150); Aspartate Amino Transferase* 48 U/L (12-35); Bilirubin Total* 0.7 mg/dL (0.1-1.5); Blood Urea Nitrogen* 20 mg/dL (7-30); Carbon Dioxide* 27 mmol/L (20-32); Creatinine* 0.8 mg/dL (0.5-1.5); Estimated Glomerular Filt Rate 94 ml/min; Glucose* 139 mg/dL (60-115); Total Protein* 6.9 g/dL (6.0-8.3)
== END 2023-02-20 23:59 | disposition home or self-care (01) ==
LOC: CCIC 09:15
PROVIDERS: Clinical Nurse Specialist; Internal Medicine Medical Oncology; PCP Physician Assistant; Referring Provider Physician Assistant; Visit Provider Physician Assistant
DX: C20 Malignant neoplasm of rectum (principal); C78.00 Secondary malignant neoplasm of unspecified lung; R32 Unspecified urinary incontinence; R26.81 Unsteadiness on feet; G62.0 Drug-induced polyneuropathy; T45.1X5A Adverse effect of antineoplastic and immunosuppressive drugs, initial encounter; R60.9 Edema, unspecified; R05.8 Other specified cough
CPT/HCPCS: 36415; 36591; 80053; 82728; 83540; 83550; 83735; 84100; 84153; 85025; 96413; 99212; 99214; 99215; J1642; J7050; J9355

== ENCOUNTER 2022-10-27 16:57 | Emergency (ER) | payer MEDICARE, SELFPAY ==
[2022-10-27 17:02] VITALS: BP 137/58; PULSE 92; RESP 18; TEMP 36.6; O2SAT 100; BMI 25.0
--- NOTE | 2022-10-27 17:26 | ED.GENADULT ---
HPI - General Adult General Time Seen by Provider: 17:26 Date Seen: 10/27/22 Chief complaint: Edema Stated complaint: legs swelling Time Seen by Provider: 10/27/22 16:59 Source: patient Mode of arrival: ambulatory Limitations: physical limitation History of Present Illness HPI narrative: Patient is a very pleasant 72 white male unfortunately has rectal medic static cancer to lung. He has also got an adrenal mass. Here he and his significant other report that he really isn't a candidate for further treatment and that they have been discussing hospice with the oncologist. He had a recent lower extremity Doppler scan for edema which is his chief complaint today of his lower extremities, this was negative for DVT. He has had a CT scan recently of his chest abdomen pelvis that showed increase masses in his lungs as well as adrenal mass, no other intra-abdominal findings. He has had continued swelling in his legs bilaterally. Related Data Home Medications Medication Instructions Recorded Confirmed lorazepam 0.5 mg tablet 0.5 mg PO Q4H PRN 01/22/22 10/26/22 multivitamin 1 tab PO DAILY 01/22/22 10/26/22 naproxen 220 mg-diphenhydramine 25 1 tab PO HS 01/22/22 10/26/22 mg tablet ondansetron HCl 4 mg tablet 4 mg PO Q6H PRN 01/22/22 10/26/22 prochlorperazine maleate 10 mg 10 mg PO Q6-8H PRN 01/22/22 10/26/22 tablet Previous Rx's Medication Instructions Recorded tucatinib 150 mg tablet 300 mg PO Q12H #120 tabs 05/25/22 furosemide 40 mg tablet (Lasix) 40 mg PO DAILY 4 days #7 tabs 10/27/22 Allergies Allergy/AdvReac Type Severity Reaction Status Date / Time No Known Drug Allergies Allergy Verified 10/26/22 10:02 Review of Systems Status of ROS: Reports: 6 or more systems reviewed and unremarkable except as noted in History and below [facility] Medical History 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 ?C20 - Malignant neoplasm of rectum (ICD-10) ?C79.89 - Secondary malignant neoplasm of other specified sites (ICD-10) Encounter for postoperative care ?Z48.89 - Encounter for other specified surgical aftercare (ICD-10) Herpes zoster ?B02.9 - Zoster without complications (ICD-10) Rectal cancer ?C20 - Malignant neoplasm of rectum (ICD-10) Ulcerative lesion Surgical History No significant past surgical history Social History Smoking Status: Never smoker Second hand tobacco smoke exposure: No How often do you have a drink containing alcohol: never How often do you have six or more drinks on one occasion: Never AUDIT-C Alcohol total score: 0 Non-prescribed substance use: denies use service: No Exam Narrative: Exam Narrative: Objective: Patient's vital signs look unremarkable his O2 sats 100% on room air He is alert or x3, he denies any pain, denies any sleeping difficulty. He has got a regular pulse he has got a benign abdomen, he has got 2+ edema both legs below his knees even into his thigh areas. Const: Vital Signs, click to edit/add: Vital Signs - 24 hr 10/27/22 17:02 Temperature 97.8 F Pulse Rate [Pulse Oximeter] 92 Respiratory Rate 18 Blood Pressure [Le ft Upper Arm] 137/58 L Pulse Oximetry 100 Oxygen Delivery Me thod Room Air Course Vital Signs Vital signs: Initial Vital Signs Temperature 97.8 F 10/27/22 17:02 Temperature Source Temporal Artery Scan 10/27/22 17:02 Pulse Rate 92 10/27/22 17:02 Respiratory Rate 18 10/27/22 17:02 Blood Pressure 137/58 L 10/27/22 17:02 Blood Pressure Mean 84 10/27/22 17:02 Pulse Oximetry 100 10/27/22 17:02 Oxygen Delivery Method Room Air 10/27/22 17:02 Vital Signs Temperature 97.8 F 10/27/22 17:02 Pulse Rate 92 10/27/22 17:02 Respiratory Rate 18 10/27/22 17:02 Blood Pressure 137/58 L 10/27/22 17:02 Pulse Oximetry 100 10/27/22 17:02 Oxygen Delivery Method Room Air 10/27/22 17:02 Temperature 97.8 F 10/27/22 17:02 Pulse Rate 92 10/27/22 17:02 Respiratory Rate 18 10/27/22 17:02 Blood Pressure 137/58 L 10/27/22 17:02 Pulse Oximetry 100 10/27/22 17:02 Oxygen Delivery Method Room Air 10/27/22 17:02 Medical Decision Making MDM Narrative Medical decision making narrative: Patient is a 70 year white male with metastatic rectal cancer which is failed oncology treatment. At this point they are feeling that hospice is a reasonable option. He would like something to help the swelling. He is not having any pain or difficulty sleeping. I can certainly give him some Lasix now and then 40 mg daily for 4-5 days. I would recommend follow up with regular doctor within the next few days to discuss ongoing oncology care end of life care, hospice consult etc. he has significant other were comfortable plan. At this point he does not need any pain medicine. Discharge Plan Discharge Clinical Impression: Malignant neoplasm of rectum metastatic to lung, Fluid retention Patient Disposition: Home w/ Parent or Adult Condition: Stable Additional Instructions: Low-salt diet, Lasix 40 mg daily x3 days, follow-up with primary care in the next 2-3 days, discuss with Oncology and primary care regarding Cancer Care, return as needed Activity Level: Light activity Discharge Diet: 2 gm Sodium Prescriptions: New furosemide [Lasix] 40 mg tablet 40 mg PO DAILY 4 Days Qty: 7 2RF No Action lorazepam 0.5 mg tablet 0.5 mg PO Q4H PRN Patient Comments: TAKE ONE TABLET BY MOUTH THREE TIMES DAILY NEEDED for nausea uncontrolled with compazine ondansetron HCl 4 mg tablet 4 mg PO Q6H PRN Patient Comments: take 1 tablet by mouth every 6 hours as needed if compazine is ineffective to control nausea. Do not take within 24 hours of chemotherapy. multivitamin Tablet 1 tab PO DAILY naproxen-diphenhydramine 220-25 mg tablet 1 tab PO HS prochlorperazine maleate 10 mg tablet 10 mg PO Q6-8H PRN tucatinib 150 mg tablet 300 mg PO Q12H Qty: 120 2RF Follow Up/Referrals: Jaja Duarte PA [Primary Care Provider] - Stand Alone [facility] Inst[facility]
[2022-10-27] MEDS: FUROSEMIDE 40 MG TABLET PO (17:47)
== END 2022-10-27 17:55 | disposition home or self-care (01) ==
LOC: ED 17:32
PROVIDERS: Emergency Provider Family Medicine; PCP Physician Assistant
DX: R60.9 Edema, unspecified (principal); C20 Malignant neoplasm of rectum
CPT/HCPCS: 99283; 99284; A9270